=== PATIENT | male | born 1960 | race Caucasian/White ===

== ENCOUNTER 2020-07-19 07:32 | Outpatient (CLI) | payer OTHER, SELFPAY ==
[2020-07-19 07:41] LABS: Basophils Absolute Auto 0.03 K/mm3 (0.00-0.10); Basophils Percent Auto 0.6 % (0.0-1.0); Eosinophils Absolute Auto 0.18 K/mm3 (0.02-0.50); Eosinophils Percent Auto 3.5 % (1.0-6.0); Hematocrit 43.8 % (40.0-54.0); Hemoglobin 14.2 g/dL (14.0-18.0); Immature Granulocyte Absolute 0.01 K/mm3 (0.00-0.00); Immature Granulocyte Percent A 0.2 % (0.0-0.0); Lymphocytes Absolute Auto 1.59 K/mm3 (1.10-4.50); Lymphocytes Percent Auto 30.9 % (18.0-42.0); Mean Corpuscular HGB Conc 32.4 g/dL (32.0-36.0); Mean Corpuscular Hemoglobin 29.7 pg (27.0-31.0); Mean Corpuscular Volume 91.6 fL (78.0-102.0); Mean Platelet Volume 9.2 fl (8.7-11.0); Monocytes Absolute Auto 0.42 K/mm3 (0.10-0.90); Monocytes Percent Auto 8.2 % (2.0-11.0); Neutrophils Absolute Auto 2.9 K/mm3 (1.7-7.2); Neutrophils Percent Auto 56.6 % (50.0-70.0); Platelet Count Result 212 K/mm3 (150-420); Red Blood Count 4.78 M/mm3 (4.70-6.10); Red Cell Distribution Width 12.6 % (11.6-14.4); White Blood Count 5.2 K/mm3 (4.8-10.8)
[2020-07-19 08:56] LABS: Alanine Aminotransferase 37 U/L (16-63); Albumin Level 3.9 g/dL (3.4-5.0); Alkaline Phosphatase 78 U/L (46-116); Anion Gap 9 mmol/L (8-16); Aspartate Amino Transferase 25 U/L (15-37); Bilirubin,Total 0.4 mg/dL (0.00-1.00); Blood Urea Nitrogen 18 mg/dL (7-18); Calcium 8.8 mg/dL (8.5-10.1); Carbon Dioxide 26 mmol/L (21-32); Chloride 104 mmol/L (98-108); Cholesterol 194 mg/dL (0-200); Estimated Glomerular Filt Rate > 60; Folic Acid 10.1 ng/mL (8.6->20); Glucose 107 mg/dL (70-99); HDL Direct 51 mg/dL (40-60); Iron 73 ug/dL (65-175); LDL Cholesterol Calculated 124 mg/dL (<130); Osmolality Calculated 289 mOsm/kg (285-295); Percent Iron Saturation 26 % (12-57); Potassium 4.3 mmol/L (3.5-5.1); Sodium 139 mmol/L (136-145); Thyroid Stimulating Hormone 1.53 uIU/mL (0.36-3.74); Total Protein 6.9 g/dL (6.4-8.2); Triglycerides 97 mg/dL (0-150); Vitamin B12 96 pg/mL (193-986)
[2020-07-19 08:57] LABS: Prostate Specific Antigen < 0.1 ng/mL (< OR = 4.0)
== END 2020-07-19 07:33 | disposition home or self-care (01) ==
LOC: CHSLAB 07:34
PROVIDERS: PCP Family Medicine; Visit Provider Physician Assistant
DX: Z00.00 Encounter for general adult medical examination without abnormal findings (principal); Z87.448 Personal history of other diseases of urinary system; I10 Essential (primary) hypertension; Z12.5 Encounter for screening for malignant neoplasm of prostate; E78.00 Pure hypercholesterolemia, unspecified
CPT/HCPCS: 36415; 80053; 80061; 82607; 82746; 83540; 83550; 84153; 84443; 85025; G0103

== ENCOUNTER 2021-05-10 13:07 | Emergency (ER) | payer OTHER, SELFPAY ==
--- NOTE | ~2021-05-10 | US_ITS ---
EXAMINATION: US venous doppler LE RT DATE: 05/10/2021 14:44 INDICATION: Right lower limb pain TECHNIQUE: Fontenot scale images without and with compression and Doppler images of the right lower extre mity veins were obtained. COMPARISON: None FINDINGS: The right common femoral vein, profunda femoral vein, femoral vein, popliteal vein, peronea l trunk, posterior tibial veins, and greater saphenous vein are patent. There is an approximately 2.3 x 0.9 cm hypoechoic area in the medial soft tissues of the lower leg. There is posterior acoustic en hancement and no internal vascularity. IMPRESSION: 1. Patent right lower extremity veins. No evidence of deep venous thrombosis. 2. Possible small hematoma in the medial soft tissues of the lower leg. Recommend clinical follow-up with follow-up imaging if finding persists. Reviewed, dictated and finalized at location B. IMPRESSION: 1. Patent right lower extremity veins. No evidence of deep venous thrombosis. 2. Possible small hematoma in the medial soft tissues of the lower leg. Recomme nd clinical follow-up with follow-up imaging if finding persists.
--- NOTE | ~2021-05-10 | XR_ITS ---
XR knee RT 3V DATE: 05/10/2021 14:48 INDICATION: Posterior knee pain TECHNIQUE: 3 views COMPARISON: None FINDINGS: No fracture or dislocation or joint effusion. No periosteal reaction or bone destruction. J oint spaces are well preserved. Mild particular spurring of the patella. No radiopaque intra-articular loose body or chondrocalcinosis. Superior pole patellar enthesopathy. There is some ossification within the patellar tendon. IMPRESSION: Mild patellofemoral osteoarthritis Reviewed, dictated and finalized at location A.
[2021-05-10 13:15] VITALS: BP 154/107; PULSE 72; RESP 16; TEMP 36.8; O2SAT 97
[2021-05-10 13:40] VITALS: BP 133/79
[2021-05-10] MEDS: KETOROLAC (*BKC) 60 MG/2 ML VIAL IM (14:40)
--- NOTE | 2021-05-10 15:22 | ED.EXTPRO ---
HPI - Extremity Problem General Chief complaint: Extremity Problem,Nontraumatic Stated complaint: pain/swelling in rt knee Time Seen by Provider: 05/10/21 13:10 Source: patient and RN notes reviewed Mode of arrival: ambulatory Limitations: no limitations History of Present Illness Complaint: extremity pain and extremity swelling (right calf minimally swollen + nader-medial right knee pain and decreased ROM.) Onset (ago): day(s) (2 days.) Pain Consistency: constant Location: right and knee Severity scale (1-10): 4 Quality: aching Radiation: none Relieving factors: immobilization Exacerbating factors: weight bearing and walking Associated symptoms: denies other symptoms Related Data Allergies Allergy/AdvReac Type Severity Reaction Status Date / Time NSAIDS (Non-Steroidal AdvReac Other Verified 05/10/21 13:33 Anti-Inflamma Review of Systems Review of Systems: All systems reviewed & are unremarkable except as noted in HPI and below Constitutional: Constitutional: Reports as per HPI and Reports no additional constitutional complaints Eyes: Eyes: Reports as per HPI and Reports no additional eye complaints ENT: Reports system reviewed and no additional complaints, except as documented and Reports as per HPI Cardiovascular: Cardiovascular: Reports as per HPI and Reports no additional cardiovascular complaints Respiratory: Respiratory: Reports as per HPI and Reports no additional respiratory complaints Gastrointestinal: Gastrointestinal: Reports as per HPI and Reports no additional gastrointestinal complaints Genitourinary: Genitourinary: Reports no additional male genitourinary complaints and Reports as per HPI Musculoskeletal: Musculoskeletal: Reports no additional musculoskeletal complaints, Reports as per HPI and Reports arthralgias Integumentary/Breasts: Skin/Breast: Reports system reviewed and no additional complaints, except as docu and Reports as per HPI Neurologic: Reports system reviewed and no additional complaints, except as documented and Reports as per HPI Psychiatric: Psychiatric: Reports no additional psychiatric complaints and Reports as per HPI Endocrine: Endocrine: Reports no additional endocrine complaints and Reports as per HPI Hematologic/Lymphatic: Hematologic/Lymphatic: Reports no additional hematologic/lymphatic complaints and Reports as per HPI Allergic/Immunologic: Allergic/Immunologic: Reports no additional allergic/immunologic complaints and Reports as per HPI PMFSH Past Medical History Medical History Anemia of unknown etiology Arthritis of knee, right Hypercholesterolemia MVP (mitral valve prolapse) Severe low back pain Surgical History Surgical History History of appendectomy History of surgery on arm [place] teeth extracted Family History Family History Other Diabetes mellitus Family history of malignant neoplasm of bone Social History Social History Smoking status: Former smoker (Quit 2007) Second hand tobacco smoke exposure: No Smoking end date: 09/28/07 Alcohol intake: current Alcohol use details: consumes 2-3 mixed drinks weekly Substance use: never Substance use type: does not use Gender identity (if verbalized by the patient): Male Exam Const: General: healthy appearing, no acute distress and alert Nutritional Appearance: well nourished Orientation/consciousness: patient oriented x3 Limitations: no limitations HENMT: Head: normal to inspection Ears: external ears normal and TM's normal bilaterally General nose exam: Normal external nose present and Normal nares present Mouth: Yes lip normal and Yes moist mucous membranes Teeth and gingiva: dentition normal Throat: posterior oropharynx normal Eyes: Conjunctiva
[2021-05-10 15:37] VITALS: RESP 17
== END 2021-05-10 15:35 | disposition home or self-care (01) ==
PROVIDERS: Emergency Provider Emergency Medicine; PCP Family Medicine
DX: M13.861 Other specified arthritis, right knee (principal)
CPT/HCPCS: 73562; 93971; 96372; 99283; 99284; J1885

== ENCOUNTER → 2021-09-02 16:52 | Outpatient (CLI) | payer OTHER, SELFPAY ==
--- NOTE | ~2021-09-02 | XR_ITS ---
EXAMINATION: XR cervical spine 4-5V EXAM DATE: 09/02/2021 18:43 INDICATION: M54.9 - Dorsalgia, unspecified. Neck and back pain. TECHNIQUE: Cervical spine frontal, lateral, lateral swimmers, and open-mouth odontoid projections. There is no prior study for comparison. FINDINGS: There is moderate disc disease at C5-6, mild at C6-7. There is mild to moderate cervical a rthropathy. The odontoid process is intact. The lateral masses of C1 line up with C2. Prevertebral s oft tissue and pre-dens space are within normal limits. The vertebral bodies are aligned in the AP di mension. IMPRESSION: 1. Mild to moderate cervical spondylosis. Reviewed, dictated and finalized at location A. RIBUTION FIELD TECHNICIAN
--- NOTE | ~2021-09-02 | XR_ITS ---
EXAMINATION: XR thoracic spine 2V EXAM DATE: 09/02/2021 18:43 INDICATION: M54.9 - Dorsalgia, unspecified. TECHNIQUE: Frontal and lateral projections of the thoracic spine as well as lateral swimmers projecti on of the upper thoracic spine for interpretation. There is no prior study for comparison. FINDINGS: The vertebral bodies are aligned in the AP dimension. Vertebral body and disc heights are well-maintained. There are no bony erosions identified. There are no acute fractures identified. Para spinal soft tissue is unremarkable. IMPRESSION: Unremarkable thoracic x-ray. Reviewed, dictated and finalized at location A. ONS TRADER
== END ==
PROVIDERS: PCP Family Medicine; Visit Provider Family Medicine
DX: M54.9 Dorsalgia, unspecified (principal); M47.812 Spondylosis without myelopathy or radiculopathy, cervical region
CPT/HCPCS: 72050; 72070

== ENCOUNTER 2021-10-02 13:38 | Outpatient (CLI) | payer OTHER, SELFPAY ==
--- NOTE | ~2021-10-02 | XR_ITS ---
XR shoulder LT min 2V DATE: 10/02/2021 14:08 INDICATION: Anterior and posterior left shoulder pain. No injury. TECHNIQUE: 4 views COMPARISON: 07/17/2017 left shoulder FINDINGS: No fracture or dislocation, periosteal reaction or bone destruction. There is mild degenera tive change of the left acromion clavicular joint. No abnormal soft tissue calcification of the left shoulder. IMPRESSION: Mild degenerative change at left acromioclavicular joint Reviewed, dictated and finalized at location A. LIBRARIAN
== END 2021-10-02 13:39 | disposition home or self-care (01) ==
LOC: ANHIMG 13:43
PROVIDERS: PCP Family Medicine; Visit Provider Physician Assistant
DX: M19.012 Primary osteoarthritis, left shoulder (principal)
CPT/HCPCS: 73030

== ENCOUNTER 2022-01-30 09:05 | Outpatient (CLI) | payer OTHER, SELFPAY ==
[2022-01-30 09:42] LABS: Hematocrit 42.7 % (40.0-54.0); Mean Corpuscular HGB Conc 30.4 g/dL (32.0-36.0); Mean Corpuscular Hemoglobin 28.3 pg (27.0-31.0); Mean Corpuscular Volume 92.8 fL (78.0-102.0); Mean Platelet Volume 8.9 fl (8.7-11.0); Platelet Count Result 366 K/mm3 (150-420); Red Cell Distribution Width 13.1 % (11.6-14.4); White Blood Count 6.6 K/mm3 (4.8-10.8)
[2022-01-30 09:44] LABS: Add Urine Microscopic? NO; Appearance Urine Clear (Clear); Bilirubin Urine Negative (Negative); Blood Urine Negative (Negative); Color Urine Light Yellow (Yellow); Glucose Urine UA Negative (Negative); Ketones Urine Negative (Negative); Leukocyte Esterase Ur Negative LEU/UL (Negative); Nitrate Urine Negative (Negative); Protein Urine Negative (Negative); Specific Grav Ur <= 1.005 (1.010-1.020); Urobilinogen Urine 0.2 mg/dL (0.2-1.0)
[2022-01-30 10:19] LABS: Alanine Aminotransferase 26 U/L (16-63); Albumin Level 3.5 g/dL (3.4-5.0); Alkaline Phosphatase 107 U/L (46-116); Anion Gap 6 mmol/L (8-16); Aspartate Amino Transferase 17 U/L (15-37); Bilirubin,Total 0.3 mg/dL (0.00-1.00); Blood Urea Nitrogen 15 mg/dL (7-18); Calcium 9.3 mg/dL (8.5-10.1); Carbon Dioxide 30 mmol/L (21-32); Chloride 101 mmol/L (98-108); Cholesterol 174 mg/dL (0-200); Estimated Glomerular Filt Rate > 60; Glucose 88 mg/dL (70-99); HDL Direct 56 mg/dL (40-60); LDL Cholesterol Calculated 103 mg/dL (<130); Osmolality Calculated 283 mOsm/kg (285-295); Potassium 4.1 mmol/L (3.5-5.1); Sodium 137 mmol/L (136-145); Total Protein 8.2 g/dL (6.4-8.2); Triglycerides 76 mg/dL (0-150)
[2022-01-30 10:22] LABS: Thyroid Stimulating Hormone Reflex 1.88 u/IU/mL (0.36-3.74)
[2022-01-30 10:34] LABS: Rheumatoid Factor Screen Negative (Negative)
[2022-01-30 10:44] LABS: Erythrocyte Sedimentation Rate 41 mm/hr (0-20)
[2022-02-04 13:04] LABS: Anti Cyclic Citrullinated Pept <16 Units (<20)
== END 2022-01-30 09:06 | disposition home or self-care (01) ==
LOC: CHSLAB 09:07
PROVIDERS: PCP Family Medicine; Visit Provider Family Medicine
DX: I10 Essential (primary) hypertension (principal); R53.83 Other fatigue; M25.50 Pain in unspecified joint; E78.2 Mixed hyperlipidemia; Z87.448 Personal history of other diseases of urinary system
CPT/HCPCS: 36415; 80053; 80061; 81003; 84443; 84550; 85027; 85652; 86038; 86200; 86430

== ENCOUNTER 2022-02-03 07:20 | Outpatient (CLI) | payer OTHER, SELFPAY ==
--- NOTE | ~2022-02-03 | US_ITS ---
US renal BI DATE: 02/03/2022 07:47 INDICATION: Abnormal left kidney finding reported on November 24, 2018 CT abdomen pelvis noncontrast examination TECHNIQUE: Real-time imaging of the kidneys and urinary bladder COMPARISON: 11/24/2018 CT abdomen pelvis noncontrast examination November 25, 2018 MRI renal examination FINDINGS: The right kidney measures 11.3 cm length, left kidney 11.8 cm length. No renal mass lesion or hydronephrosis is detected. There is chronic lobulation of the superior aspect of the left kidney, stable since 2019. The urinary bladder is evacuated. IMPRESSION: No significant abnormality or significant change Reviewed, dictated and finalized at Location A. Reviewed, dictated and finalized at location B.
== END 2022-02-03 07:21 | disposition home or self-care (01) ==
LOC: CHSIMG 07:21
PROVIDERS: PCP Family Medicine; Visit Provider Family Medicine
DX: R93.429 Abnormal radiologic findings on diagnostic imaging of unspecified kidney (principal)
CPT/HCPCS: 76775

== ENCOUNTER 2022-09-30 08:40 | Emergency (ER) | payer OTHER, SELFPAY ==
--- NOTE | 2022-09-30 08:43 | ED.SKABFB ---
HPI - Skin/Abscess/Foreign Bdy General Chief complaint: Skin/Abscess/Foreign Body Stated complaint: body rash rt leg Time Seen by Provider: 09/30/22 08:47 Source: patient, RN notes reviewed and old records reviewed Mode of arrival: ambulatory Limitations: no limitations History of Present Illness HPI narrative: 62-year-old male presents to the [facility] with complaints of a red area to the medial aspect right lower leg. Patient states that there is a small area that started early last week and just gradually got worse over the last week or so. Had something similar a couple years ago and was prescribed a cream. States the feels hot and itchy. Center 3 x 3 cm mildly raised. Denies any injury. No open wound, no drainage denies fevers. Related Data Allergies Allergy/AdvReac Type Severity Reaction Status Date / Time NSAIDS (Non-Steroidal AdvReac Other Verified 09/30/22 08:48 Anti-Inflamma Review of Systems Review of Systems: All systems reviewed & are unremarkable except as noted in HPI and below Constitutional: Constitutional: Reports no additional constitutional complaints Eyes: Eyes: Reports no additional eye complaints ENT: Reports system reviewed and no additional complaints, except as documented Cardiovascular: Cardiovascular: Reports no additional cardiovascular complaints, Denies chest pain and Denies dyspnea Respiratory: Respiratory: Reports no additional respiratory complaints, Denies chest congestion, Denies cough and Denies dyspnea Gastrointestinal: Gastrointestinal: Reports no additional gastrointestinal complaints, Denies abdominal pain, Denies nausea and Denies vomiting Musculoskeletal: Musculoskeletal: Reports no additional musculoskeletal complaints Integumentary/Breasts: Skin/Breast: Reports as per HPI and Reports erythema Neurologic: Reports system reviewed and no additional complaints, except as documented Psychiatric: Psychiatric: Reports no additional psychiatric complaints Allergic/Immunologic: Allergic/Immunologic: Reports no additional allergic/immunologic complaints FOR[facility]LY [facility] Past Medical History Medical History Anemia of unknown etiology Arthralgia Arthritis of knee, right Encounter for immunization Encounter for immunization Hypercholesterolemia MVP (mitral valve prolapse) Severe low back pain Vitamin B12 deficiency Surgical History Surgical History History of appendectomy History of surgery on arm [place] teeth extracted Family History Family History Other Diabetes mellitus Family history of malignant neoplasm of bone Social History Social History Smoking status: Never smoker Second hand tobacco smoke exposure: No Smoking end date: 09/28/07 Alcohol intake: current Alcohol use details: consumes 2-3 mixed drinks weekly Substance use: never Substance use type: does not use Gender identity (if verbalized by the patient): Male Sexual Orientation (if Verbalized by the Patient): Straight or Heterosexual Spiritual care concerns: No Agree to blood products: Yes Comments At the time of my signature, I reviewed and agree with the nursing past medical, surgical, social, and family history. There is no relevant family history pertinent to the patient complaint. Exam Const: General: cooperative, healthy appearing, comfortable, no acute distress, well developed, alert and well nourished Nutritional Appearance: well nourished Orientation/consciousness: patient oriented x3 Limitations: no limitations HENMT: Head: normal to inspection Ears: hearing grossly normal bilaterally and external ears normal Face/Nose/Sinus: Normal external nose present, Normal nares present, Normal nasal mucous membranes and turbinates present and normal facial exam F
[2022-09-30 08:47] VITALS: BP 153/87; PULSE 86; RESP 16; TEMP 36.9; O2SAT 98
== END 2022-09-30 09:00 | disposition home or self-care (01) ==
PROVIDERS: Emergency Provider Nurse Practitioner; PCP Family Medicine
DX: L03.115 Cellulitis of right lower limb (principal); Z87.891 Personal history of nicotine dependence; M17.11 Unilateral primary osteoarthritis, right knee; I34.1 Nonrheumatic mitral (valve) prolapse
CPT/HCPCS: 99213; G0463

== ENCOUNTER 2022-10-02 08:15 | Emergency (ER) | payer OTHER, SELFPAY ==
--- NOTE | 2022-10-02 08:22 | ED.SKABFB ---
HPI - Skin/Abscess/Foreign Bdy General Chief complaint: Skin/Abscess/Foreign Body Stated complaint: RASH Time Seen by Provider: 10/02/22 08:35 Source: patient and RN notes reviewed Mode of arrival: ambulatory Limitations: no limitations History of Present Illness HPI narrative: 62-year-old male presents with concern for worsening rash on his leg. He reports he was seen here 2 days ago and was diagnosed with cellulitis and was given antibiotics. He reports the area is not improving but is worsening with rash. He reports it is not painful but itchy. He reports he now has an itchy spot on his stomach. He denies fever, aches, chills, sweats. He denies any open skin or drainage. He denies swollen lips, swollen tongue, trouble breathing, vomiting, diarrhea. He reports he has been using the cream and antibiotic as prescribed. MD complaint: rash Related Data Allergies Allergy/AdvReac Type Severity Reaction Status Date / Time NSAIDS (Non-Steroidal AdvReac Other Verified 10/02/22 08:22 Anti-Inflamma Review of Systems Review of Systems: CONSTITUTIONAL: Denies malaise, chills, sweats, or fever. EYES: Denies redness, or discharge. ENT: Denies rhinorrhea, congestion, swollen lips, swollen tongue CARDIOVASCULAR: Denies chest pain, palpitations, or edema. RESPIRATORY: Denies cough or dyspnea. GASTROINTESTINAL: Denies abdominal pain, nausea, vomiting SKIN: Reports itchy rash on his right lower leg and an itchy spot on his stomach MUSCULOSKELETAL: Denies joint pain or myalgia. NEUROLOGIC: Denies headache. All systems reviewed & are unremarkable except as noted in HPI and below PMFSH Past Medical History Medical History Anemia of unknown etiology Arthralgia Arthritis of knee, right Encounter for immunization Encounter for immunization Hypercholesterolemia MVP (mitral valve prolapse) Severe low back pain Vitamin B12 deficiency Surgical History Surgical History History of appendectomy History of surgery on arm [place] teeth extracted Family History Family History Other Diabetes mellitus Family history of malignant neoplasm of bone Social History Social History Smoking status: Never smoker Second hand tobacco smoke exposure: No Smoking end date: 09/28/07 Alcohol intake: current Alcohol use details: consumes 2-3 mixed drinks weekly Substance use: never Substance use type: does not use Gender identity (if verbalized by the patient): Male Sexual Orientation (if Verbalized by the Patient): Straight or Heterosexual Spiritual care concerns: No Agree to blood products: Yes Comments At time of signature, agree with nursing past medical, surgical, social and family history. There is no relevant family history pertinent to the presenting complaint Exam Narrative: GENERAL: Well-appearing, well-nourished, and in no acute distress. HEAD: Normocephalic, atraumatic. EYES: PERRLA, conjunctivae clear, and EOMI. ENT: Mucous membranes moist. Oropharynx without edema, erythema or lesions. NECK: Supple. No lymphadenopathy CHEST: Clear to auscultation. No respiratory distress. HEART: Regular rate and rhythm. SKIN: Warm, dry. Original area of discoloration noted to the right lower leg, 10 cm x 8 cm of dark red without induration, edema, fluctuation or drainage, area has enlarged to total area of 13 cm x 14 cm of erythematous papules. 7 cm x 5 cm hive-like rash noted to the right lower abdomen NEURO: Alert and oriented x3. PSYCH: Normal mood and affect Course Course Emergency Course: Advised patient to complete antibiotic course. Area of discoloration of the leg appears to be dermatitis related, very evident raised red papules surrounding original erythematous area Patient is aware of diagnosis
[2022-10-02 08:24] VITALS: BP 142/82; PULSE 77; RESP 16; TEMP 36.8; O2SAT 98
== END 2022-10-02 08:47 | disposition home or self-care (01) ==
PROVIDERS: Emergency Provider Nurse Practitioner; PCP Family Medicine
DX: L30.9 Dermatitis, unspecified (principal); E78.00 Pure hypercholesterolemia, unspecified; E53.8 Deficiency of other specified B group vitamins
CPT/HCPCS: 99213; G0463

== ENCOUNTER 2022-10-03 14:37 | Outpatient (CLI) | payer OTHER, SELFPAY ==
[2022-10-03 15:20] LABS: Basophils Absolute Auto 0.1 K/mm3 (0.0-0.1); Basophils Percent Auto 0.6 % (0.2-1.2); Eosinophils Absolute Auto 0.3 K/mm3 (0-0.3); Eosinophils Percent Auto 3.5 % (0-4.4); Hemoglobin 13.7 g/dL (14.0-18.0); Immature Granulocyte Absolute 0.02 K/mm3 (0.00-0.031); Immature Granulocyte Percent A 0.2 % (0-0.5); Lymphocytes Absolute Auto 2.07 K/mm3 (0.9-3.2); Lymphocytes Percent Auto 24.4 % (18.3-44.2); Mean Corpuscular HGB Conc 31.9 g/dl (32-36); Mean Corpuscular Hemoglobin 28.8 pg (26-34); Mean Corpuscular Volume 90.3 fl (80-100); Mean Platelet Volume 9.1 fl (7.4-10.4); Monocytes Absolute Auto 0.6 K/mm3 (0.1-0.6); Monocytes Percent Auto 6.7 % (2.6-8.5); Neutrophils Absolute Auto 5.5 K/mm3 (1.3-6.7); Neutrophils Percent Auto 64.6 % (45.5-73.1); Platelet Count Result 304 k/mm3 (150-375); Red Blood Count 4.76 M/mm3 (4.6-6.20); Red Cell Distribution Width 13.1 % (11.5-14.5); White Blood Count 8.5 K/mm3 (4.5-10.0)
[2022-10-03 15:25] LABS: Alanine Aminotransferase 30 U/L (6-50); Albumin Level 4.5 g/dL (3.5-5.1); Alkaline Phosphatase 105 U/L (38-126); Anion Gap 8 mmol/L (8-16); Aspartate Amino Transferase 31 U/L (17-59); Bilirubin,Total 0.2 mg/dL (0.2-1.3); Blood Urea Nitrogen 18 mg/dL (9-20); Calcium 9.2 mg/dL (8.4-10.2); Carbon Dioxide 25 mmol/L (22-30); Chloride 107 mmol/L (98-107); Estimated Glomerular Filt Rate > 60; Glucose 107 mg/dL (65-110); Potassium 3.7 mmol/L (3.4-5.0); Sodium 140 mmol/L (137-145)
[2022-10-03 16:29] LABS: Erythrocyte Sedimentation Rate 42 mm/hr (0-20)
[2022-10-07 14:43] LABS: Lyme Disease Ab (IgM), Blot Negative (Negative); Lyme Disease Ab(IgG), Blot Negative (Negative)
== END 2022-10-03 14:38 | disposition home or self-care (01) ==
LOC: ANHLAB 14:38
PROVIDERS: PCP Family Medicine; Visit Provider Family Medicine
DX: R21 Rash and other nonspecific skin eruption (principal); I10 Essential (primary) hypertension
CPT/HCPCS: 36415; 80053; 85025; 85652; 86617; 86666; 87040

== ENCOUNTER 2022-10-20 10:53 | Outpatient (CLI) | payer OTHER, SELFPAY ==
--- NOTE | 2022-10-20 11:04 | ECG_ITS ---
Measurements Intervals [place] Rate: 72 P: 41 LA: 199 QRS: 16 QRSD: 98 T: 30 QT: 376 QTc: 411 Interpretive Statements SINUS RHYTHM NORMAL ECG NO PREVIOUS ECG AVAILABLE FOR COMPARISON Electronically Signed On 10-20-2022 11:49:58 SURVEY FIELD TECHNICIAN by Martell Wilson D.O.
== END 2022-10-20 10:54 | disposition home or self-care (01) ==
PROVIDERS: PCP Family Medicine; Visit Provider Family Medicine
DX: I10 Essential (primary) hypertension (principal)
CPT/HCPCS: 93005

== ENCOUNTER 2022-11-25 07:48 | Outpatient (RCR) | payer OTHER, SELFPAY ==
--- NOTE | 2022-11-25 09:01 | PTOPEVAL1 ---
Assessment and note entered by JT File, PT Evaluation Information Assessment Status Evaluation Diagnosis s/p L shoulder arthroscopy Onset 11/11/22 Subjective Information patient reports prior to surgery, he has having a lot of pain and popping in the L shoulder. he reports reaching forward infront of him caused the shoulder to have severe pain and popping. he reports he was unable to lift anything with the L arm. 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 he reports he is planning on taking off as long as needed to recover. he reports since surgery, he has pain with lifting the arm away from the body. he reports he is able to bend and extend the elbow, but moving his whole arm away from his body is painful. Reported Pain Level Pain Score 2: Self Report Assessment PT Clinical Summary mr. cedeño is a 62 yo man who presents to skilled PT services for evaluation and treatment of L shoulder decreased rom, pain, and weakness following shoulder arthroscopy. aside from his functional activities around home, he also has a physically decmanding job that requires him to lift, carry, and reach overhead frequently. he would benefit from skilled PT interventions to improve his objective/functional deficits and progress towards a return to his prior level functional activity performance and quality of life. Plan of Care Interventions Electrical Stimulation,Hot Pack/Cold Pack,Manual Therapy,Neuro Re-education,Patient/Caregiver Educati,Therapeutic Activities,Therapeutic Exercise PT Services Indicated Yes Treatment Frequency and 3x weekly for 12 visits Duration These treatments will address the objective and functional deficits as defined above. The patient will be advanced safely and appropriately in order for the patient to progress towards his/her prior level of function. Additional exercises will be introduced and as well as a comprehensive home exercise program upon discharge, if needed, ?to ensure carryover of functional gains achieved in the clinic. This treatment plan has been reviewed and agreement upon by the patient.
--- NOTE | 2022-12-25 07:49 | PTOPPROGNS ---
Assessment and note entered by Liz Orozco DPT Evaluation Information Assessment Status Progress Diagnosis s/p L shoulder arthroscopy Onset 11/11/22 Subjective Information Patient reports his pain has decreased significantly within the last week. He reports his highest pain has been 2/10. He reports that reaching behind him continues to be his most challenging task. Assessment PT Clinical Summary Patient has been seen for 10 visits from 11/25/22-. He has made great improvements in L UE strength and ROM. He reports significant decrease in recent pain levels. He continues to have strength deficits and reports diffiulty with activities that require him to reach behind his back such as puting on a belt. He would continue to benefit from skilled PT to address remaining impairments and return to PLOF. Plan of Care Interventions Electrical Stimulation,Hot Pack/Cold Pack,Manual Therapy,Neuro Re-education,Patient/Caregiver Educati,Therapeutic Activities,Therapeutic Exercise PT Services Indicated Yes Treatment Frequency and continue with current POC Duration These treatments will address the objective and functional deficits as defined above. The patient will be advanced safely and appropriately in order for the patient to progress towards his/her prior level of function. Additional exercises will be introduced and as well as a comprehensive home exercise program upon discharge, if needed, ?to ensure carryover of functional gains achieved in the clinic. This treatment plan has been reviewed and agreement upon by the patient.
== END 2022-12-30 23:59 | disposition home or self-care (01) ==
LOC: CHSPT 07:48
PROVIDERS: Visit Provider Orthopaedic Surgery
DX: M25.512 Pain in left shoulder (principal); Z98.890 Other specified postprocedural states
CPT/HCPCS: 97014; 97110; 97112; 97140; 97161; G0283

== ENCOUNTER 2022-11-30 13:20 | Emergency (ER) | payer OTHER, SELFPAY ==
[2022-11-30 13:27] VITALS: BP 156/105; PULSE 89; RESP 16; TEMP 36.8; O2SAT 98
--- NOTE | 2022-11-30 13:44 | ED.GENADULT ---
HPI - General Adult General Chief complaint: Skin/Abscess/Foreign Body Stated complaint: L arm rash History of Present Illness HPI narrative: Cristopher presented to the ED with a rash. He has had a couple rashes since having shoulder surgery (is reportedly allergic to tape) for a couple weeks. However, his left elbow crease has started to crack and have some drainage so he became concerned. This happened to another rash and it was worsened by triamcinolone cream but helped by antibiotics. No fevers, chills, N/V, or other systemic symptoms reported. Related Data Home Medications Medication Instructions Recorded Confirmed ascorbic acid (vitamin C) 500 mg 500 mg PO BID 11/30/22 11/30/22 chewable tablet (Vitamin C) cholecalciferol (vitamin D3) 50 50 mcg PO DAILY 11/30/22 11/30/22 mcg (2,000 unit) tablet Allergies Allergy/AdvReac Type Severity Reaction Status Date / Time NSAIDS (Non-Steroidal AdvReac Other Verified 10/21/22 15:55 Anti-Inflamma tape AdvReac Rash Uncoded 11/30/22 13:46 Review of Systems Review of Systems: All systems reviewed & are unremarkable except as noted in HPI and below PMFSH Past Medical History Medical History Anemia of unknown etiology Arthralgia Arthritis of knee, right Encounter for immunization Encounter for immunization Hypercholesterolemia MVP (mitral valve prolapse) Severe low back pain Vitamin B12 deficiency Surgical History Surgical History History of appendectomy History of surgery on arm [place] teeth extracted Family History Family History Other Diabetes mellitus Family history of malignant neoplasm of bone Social History Social History Smoking status: Never smoker Second hand tobacco smoke exposure: No Smoking end date: 09/28/07 Alcohol intake: current Alcohol use details: consumes 2-3 mixed drinks weekly Substance use: never Substance use type: does not use Lack of Transportation: No Lack of Food: Never True Current Housing: I Have Housing Concerned About Future Housing: No Difficulty Paying Gas/Electric Bills: No Difficulty Paying for Meds: No Currently Unemployed: No Education: High School Diploma/GED Difficulty w/ Childcare or Family Care: No Living arrangements: with family Gender identity (if verbalized by the patient): Male Sexual Orientation (if Verbalized by the Patient): Straight or Heterosexual Spiritual care concerns: No Agree to blood products: Yes Exam Const: General: healthy appearing and no acute distress Nutritional Appearance: well nourished Orientation/consciousness: patient oriented x3 HENMT: Head: normal to inspection Ears: external ears normal Eyes: Conjunctivae: conjunctivae normal Pupils: Equal, round and reactive pupils present Neck: Neck: normal visual inspection Chest: Chest palpation & inspection: normal inspection of the chest Resp: Effort & Inspection: normal respiratory effort Cardio: Rate: regular rate GI: Inspection: non-distended Skin: Other: left anterior elbow had an erythematous maculopapular rash with excoriation and honey colored drainage Neuro: General: patient oriented x3 and moves all extremities Cranial nerves: Yes Nystagmus not present Extrem: General: normal to inspection Psych: Mental Status: mental status grossly normal Course Course Emergency Course: clindamycin Vital Signs Vital signs: Vital Signs Temperature 98.3 F 11/30/22 13:27 Pulse Rate 89 11/30/22 13:27 Respiratory Rate 16 11/30/22 13:27 Blood Pressure 156/105 H 11/30/22 13:27 Pulse Oximetry 98 11/30/22 13:27 Oxygen Delivery Room Air 11/30/22 13:27 Temperature 98.3 F 11/30/22 13:27 Pulse Rate 89 11/30/22 13:27 Respiratory Ra
[2022-11-30] MEDS: CLINDAMYCIN HCL 150 MG CAP 450 MG PO (13:54)
== END 2022-11-30 13:58 | disposition home or self-care (01) ==
PROVIDERS: Emergency Provider Family Medicine; PCP Family Medicine
DX: L01.00 Impetigo, unspecified (principal)
CPT/HCPCS: 99283; A9270

== ENCOUNTER 2023-10-01 08:53 | Outpatient (CLI) | payer BC, SELFPAY ==
[2023-10-01 10:38] LABS: Alanine Aminotransferase 36 U/L (16-63); Alkaline Phosphatase 94 U/L (46-116); Anion Gap 5 mmol/L (8-16); Aspartate Amino Transferase 26 U/L (15-37); Bilirubin,Total 0.4 mg/dL (0.00-1.00); Blood Urea Nitrogen 16 mg/dL (7-18); Calcium 9.3 mg/dL (8.5-10.1); Carbon Dioxide 33 mmol/L (21-32); Chloride 101 mmol/L (98-108); Cholesterol 204 mg/dL (0-200); Estimated Glomerular Filt Rate > 60; Glucose 99 mg/dL (70-99); HDL Direct 57 mg/dL (40-60); LDL Cholesterol Calculated 133 mg/dL (<130); Osmolality Calculated 289 mOsm/kg (285-295); Potassium 4.7 mmol/L (3.5-5.1); Prostate Specific Antigen 0.8 ng/mL (< OR = 4.0); Sodium 139 mmol/L (136-145); Total Protein 7.3 g/dL (6.4-8.2); Triglycerides 72 mg/dL (0-150)
== END 2023-10-01 08:54 | disposition home or self-care (01) ==
LOC: CHSLAB 08:57
PROVIDERS: PCP Family Medicine; Visit Provider Physician Assistant
DX: Z13.1 Encounter for screening for diabetes mellitus (principal); Z12.5 Encounter for screening for malignant neoplasm of prostate; Z13.220 Encounter for screening for lipoid disorders
CPT/HCPCS: 36415; 80053; 80061; 84153; G0103

== ENCOUNTER 2023-11-18 00:18 | Day surgery (SDC) | payer BC, SELFPAY ==
[2023-10-21 11:02] VITALS: BMI 31.1
--- NOTE | 2023-11-16 09:00 | SUR.PREOP ---
Patient called regarding upcoming procedure. Voicemail left regarding appointment times.
--- NOTE | 2023-11-17 17:56 | PM.HPGS ---
History of Present Illness History of Present Illness Consent: Risks, benefits, and alternatives have been discussed and questions answered. Patient agrees to proceed with procedure. Chief complaint: Other fecal abnormalities Narrative: Cristopher Bradley is a 63 year old male Referred for colonoscopy due to positive Cologuard test. Review of Systems Review of Systems: All systems reviewed & are unremarkable except as noted in HPI and below PMFSH Past Medical History Medical History Anemia of unknown etiology Arthralgia Arthritis of knee, right Encounter for immunization Encounter for immunization Hypercholesterolemia MVP (mitral valve prolapse) Severe low back pain Vitamin B12 deficiency Surgical History Surgical History History of appendectomy History of surgery on arm [place] teeth extracted Family History Family History Other Diabetes mellitus Family history of malignant neoplasm of bone Social History Social History Years smoked: 20 Smoking status: Former smoker Tobacco type: cigarettes Second hand tobacco smoke exposure: No Smoking end date: 09/28/07 Alcohol intake: current Drinks per week: 4 Alcohol use details: consumes 1 mixed drinks weekly Substance use: never Substance use type: does not use Lack of Transportation: No Lack of Food: Never True Current Housing: I Have Housing Concerned About Future Housing: No Difficulty Paying Gas/Electric Bills: No Difficulty Paying for Meds: No Currently Unemployed: No Education: High School Diploma/GED Difficulty w/ Childcare or Family Care: No Living arrangements: other Additional living arrangements comments: with sp Occupation/Education: occupation 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 [employer] Gender identity (if verbalized by the patient): Male Sexual Orientation (if Verbalized by the Patient): Straight or Heterosexual Spiritual care concerns: No Agree to blood products: Yes Meds Home Medications and Allergies Home Medications Medication Instructions Recorded Confirmed Type hydroxychloroquine 200 mg tablet 200 mg PO BID 09/07/23 11/18/23 History pravastatin 20 mg tablet 20 mg PO DAILY #90 tabs 09/30/23 11/18/23 Rx amlodipine 5 mg tablet 5 mg PO DAILY #90 tabs 10/20/23 11/18/23 Rx tramadol 50 mg tablet 50 mg PO Q6H PRN pain #100 tabs 11/05/23 11/18/23 Rx Allergies Allergy/AdvReac Type Severity Reaction Status Date / Time NSAIDS (Non-Steroidal AdvReac Other Verified 11/18/23 06:55 Anti-Inflamma tape AdvReac Rash Uncoded 11/18/23 06:55 Exam Resp: Auscultation: clear to auscultation bilaterally Cardio: Rate: regular rate Rhythm: regular rhythm GI: GI Palp: Yes Soft to palpation and No Tenderness to palpation present (GI) Assessment and Plan Assessment and plan (1) Colon cancer screening: Code(s): Z12.11 - Encounter for screening for malignant neoplasm of colon Status: Acute Assessment and Plan: Colonoscopy with possible biopsy or polypectomy or cautery or injection of substances.
[2023-11-18 06:48] VITALS: BP 137/73; PULSE 90; RESP 16; TEMP 36.9; O2SAT 99; BMI 30.3
[2023-11-18] MEDS: LACTATED RINGERS 1,000 ML 150 ML IV CONT (07:15)
--- NOTE | 2023-11-18 07:33 | WPDANESEPPF ---
Anes - Initial Pre Proc Eval Procedure: Operation Date: 11/18/23 08:00 Proposed Procedures p Colonoscopy - Christian Sharpe MD Date/Time: 11/18/23 07:33 Surgeon: Christian Sharpe MD Pre Op Diagnosis: Other fecal abnormalities Patient Data Age: 63 Gender: M Height: 1.73 m Weight: 90.6 kg Last Vital Signs Temp 98.4 F 11/18/23 06:48 Pulse 90 11/18/23 06:48 Resp 16 11/18/23 06:48 BP 137/73 11/18/23 06:48 Pulse Ox 99 11/18/23 06:48 O2 Del Method Room Air 11/18/23 06:48 Allergies Allergy/AdvReac Type Severity Reaction Status Date / Time NSAIDS (Non-Steroidal AdvReac Other Verified 11/18/23 06:55 Anti-Inflamma tape AdvReac Rash Uncoded 11/18/23 06:55 Home Medications Medication Instructions Recorded Confirmed Type hydroxychloroquine 200 mg tablet 200 mg PO BID 09/07/23 11/18/23 History pravastatin 20 mg tablet 20 mg PO DAILY #90 tabs 09/30/23 11/18/23 Rx amlodipine 5 mg tablet 5 mg PO DAILY #90 tabs 10/20/23 11/18/23 Rx tramadol 50 mg tablet 50 mg PO Q6H PRN pain #100 tabs 11/05/23 11/18/23 Rx Patient hx anesthesia problems: none Family hx anesthesia problems: none Results Review: All pre-operative results and documents have been reviewed as part of the pre-operative evaluation. [facility] Past Medical History Medical History Anemia of unknown etiology Arthralgia Arthritis of knee, right Encounter for immunization Encounter for immunization Hypercholesterolemia MVP (mitral valve prolapse) Severe low back pain Vitamin B12 deficiency Surgical History Surgical History History of appendectomy History of surgery on arm [place] teeth extracted Family History Family History Other Diabetes mellitus Family history of malignant neoplasm of bone Social History Social History Years smoked: 20 Smoking status: Former smoker Tobacco type: cigarettes Second hand tobacco smoke exposure: No Smoking end date: 09/28/07 Alcohol intake: current Drinks per week: 4 Alcohol use details: consumes 1 mixed drinks weekly Substance use: never Substance use type: does not use Lack of Transportation: No Lack of Food: Never True Current Housing: I Have Housing Concerned About Future Housing: No Difficulty Paying Gas/Electric Bills: No Difficulty Paying for Meds: No Currently Unemployed: No Education: High School Diploma/GED Difficulty w/ Childcare or Family Care: No Living arrangements: other Additional living arrangements comments: with sp Occupation/Education: occupation 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 [employer] Gender identity (if verbalized by the patient): Male Sexual Orientation (if Verbalized by the Patient): Straight or Heterosexual Spiritual care concerns: No Agree to blood products: Yes Anes - Eval Final PreProcedure Day of Procedure 11/18/23 07:33 Patient weight: obese Heart: regular rate and rhythm Lungs: clear to auscultation Airway: Mallampati scale class II Neurological: alert and oriented Last oral intake: >/= 8 hours ASA classification: III Emergent: no Anesthetic plan: proceed Anesthesia type and monitoring: general GIVS and standard monitoring Results Review: All pre-operative results and documents have been reviewed as part of the pre-operative evaluation. Informed Consent: The patient's anesthetic plan and its attendant risks and benefits were discussed with the patient/family/POA. Questions were solicited and answers provided to the satisfaction of the patient/family/POA.
[2023-11-18 08:20] VITALS: BP 97/48; PULSE 76; RESP 12; O2SAT 97
[2023-11-18 08:30] VITALS: BP 98/51; PULSE 74; RESP 14; O2SAT 100
[2023-11-18 08:40] VITALS: BP 103/47; PULSE 76; RESP 22; O2SAT 99
== END 2023-11-18 08:50 | disposition home or self-care (01) ==
PROVIDERS: PCP Family Medicine; Visit Provider Internal Medicine Gastroenterology
PROC: 0DJD8ZZ Inspection of Lower Intestinal Tract, Via Natural or Artificial Opening Endoscopic (ICD-10-PCS; CPT 45378; principal; 2023-11-18 08:00)
DX: Z12.11 Encounter for screening for malignant neoplasm of colon (principal); D12.4 Benign neoplasm of descending colon; K57.30 Diverticulosis of large intestine without perforation or abscess without bleeding; R19.5 Other fecal abnormalities; E53.8 Deficiency of other specified B group vitamins; E78.00 Pure hypercholesterolemia, unspecified; Z87.891 Personal history of nicotine dependence
CPT/HCPCS: 45385; 88305; J2704; J7120

== ENCOUNTER 2024-01-20 11:52 | Outpatient (CLI) | payer BC, SELFPAY ==
[2024-01-20 12:09] LABS: Hematocrit 41.6 % (42.0-52.0); Hemoglobin 12.5 g/dL (14.0-18.0); Mean Corpuscular Hemoglobin 27.5 pg (26-34); Mean Corpuscular Volume 91.4 fl (80-100); Mean Platelet Volume 8.7 fl (7.4-10.4); Platelet Count Result 279 k/mm3 (150-375); Red Blood Count 4.55 M/mm3 (4.6-6.20); Red Cell Distribution Width 13.2 % (11.5-14.5); White Blood Count 5.9 K/mm3 (4.5-10.0)
[2024-01-20 13:24] LABS: Free T4 Free Thyroxine 1.13 ng/mL (0.78-2.19)
[2024-01-20 14:39] LABS: Iron 47 ug/dL (49-181)
[2024-01-20 14:48] LABS: Percent Iron Saturation 19 % (20-50)
[2024-01-24 08:54] LABS: Testosterone Free 36.7 pg/mL (35.0-155.0); Testosterone Total 260 ng/dL (250-1100)
== END 2024-01-20 11:53 | disposition home or self-care (01) ==
PROVIDERS: PCP Family Medicine; Visit Provider Physician Assistant
DX: D64.9 Anemia, unspecified (principal); E29.1 Testicular hypofunction; R53.83 Other fatigue
CPT/HCPCS: 36415; 82728; 83540; 83550; 84402; 84403; 84439; 84443; 85027

== ENCOUNTER 2024-04-06 00:10 | Day surgery (SDC) | payer BC, SELFPAY ==
[2024-03-17 14:21] VITALS: BMI 31.8
[2024-04-06 11:24] VITALS: BP 173/84; PULSE 63; RESP 18; TEMP 36.1; O2SAT 99
[2024-04-06] MEDS: LACTATED RINGERS 1,000 ML 150 ML IV CONT (11:32)
--- NOTE | 2024-04-06 11:49 | WPDANESEPPF ---
Anes - Initial Pre Proc Eval Procedure: Operation Date: 04/06/24 12:30 Proposed Procedures p Esophagogastroduodenoscopy - Krunal Christiansen MD Date/Time: 04/06/24 11:49 Surgeon: Krunal Christiansen MD Pre Op Diagnosis: Iron Deficiency anemia unspecified Patient Data Age: 64 Gender: M Height: 1.73 m Weight: 91 kg Last Vital Signs Temp 97.0 F L 04/06/24 11:24 Pulse 63 04/06/24 11:24 Resp 18 04/06/24 11:24 BP 173/84 H 04/06/24 11:24 Pulse Ox 99 04/06/24 11:24 O2 Del Method Room Air 04/06/24 11:24 Allergies Allergy/AdvReac Type Severity Reaction Status Date / Time NSAIDS (Non-Steroidal AdvReac Other Verified 04/06/24 11:22 Anti-Inflamma tape AdvReac Rash Uncoded 01/20/24 11:29 Home Medications Medication Instructions Recorded Confirmed Type hydroxychloroquine 200 mg tablet 200 mg PO BID 09/07/23 03/17/24 History pravastatin 20 mg tablet 20 mg PO DAILY #90 tabs 09/30/23 03/17/24 Rx amlodipine 5 mg tablet 5 mg PO DAILY #90 tabs 10/20/23 03/17/24 Rx ferrous sulfate 325 mg (65 mg 325 mg PO DAILY #100 tabs 01/22/24 03/17/24 Rx iron) tablet tramadol 50 mg tablet 50 mg PO Q6H PRN pain #100 tabs 03/24/24 04/06/24 Rx Patient hx anesthesia problems: none Family hx anesthesia problems: none Results Review: All pre-operative results and documents have been reviewed as part of the pre-operative evaluation. [facility] Past Medical History Medical History Anemia of unknown etiology Arthralgia Arthritis of knee, right Encounter for immunization Encounter for immunization Hypercholesterolemia MVP (mitral valve prolapse) Severe low back pain Vitamin B12 deficiency Surgical History Surgical History History of appendectomy History of surgery on arm [place] teeth extracted Family History Family History Other Diabetes mellitus Family history of malignant neoplasm of bone Social History Social History Smoking packs per day: 1.5 Smoking cigarettes per day: 30.0 Years smoked: 20 Smoking pack-years: 30.00 Smoking status: Former smoker Tobacco type: cigarettes Second hand tobacco smoke exposure: No Smoking end date: 09/28/07 Alcohol intake: current Drinks per week: 3 Alcohol use details: consumes 1 mixed drinks weekly Substance use: never Substance use type: does not use Lack of Transportation: No Lack of Food: Never True Current Housing: I Have Housing Concerned About Future Housing: No Difficulty Paying Gas/Electric Bills: No Difficulty Paying for Meds: No Currently Unemployed: No Education: High School Diploma/GED Difficulty w/ Childcare or Family Care: No Living arrangements: with family Additional living arrangements comments: with sp Occupation/Education: occupation 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[employer] Gender identity (if verbalized by the patient): Male Sexual Orientation (if Verbalized by the Patient): Straight or Heterosexual Spiritual care concerns: No Agree to blood products: Yes Anes - Eval Final PreProcedure Day of Procedure 04/06/24 11:49 Patient weight: obese Heart: regular rate and rhythm Lungs: clear to auscultation Airway: Mallampati scale class II Neurological: alert and oriented Last oral intake: >/= 8 hours ASA classification: III Emergent: no Anesthetic plan: proceed Anesthesia type and monitoring: general GIVS and standard monitoring Results Review: All pre-operative results and documents have been reviewed as part of the pre-operative evaluation. Informed Consent: The patient's anesthetic plan and its attendant risks and benefits were discussed with the patient/family/POA.
--- NOTE | 2024-04-06 12:51 | PM.HPGS ---
History of Present Illness History of Present Illness Consent: Risks, benefits, and alternatives have been discussed and questions answered. Patient agrees to proceed with procedure. Chief complaint: Iron Deficiency anemia unspecified Narrative: Cristopher Bradley is a 64 year old male here for egd because anemia, hgb 12 but denies overt gib, had recent colonoscopy but no egd Review of Systems Review of Systems: All systems reviewed & are unremarkable except as noted in HPI and below PMFSH Past Medical History Medical History Anemia of unknown etiology Arthralgia Arthritis of knee, right Encounter for immunization Encounter for immunization Hypercholesterolemia MVP (mitral valve prolapse) Severe low back pain Vitamin B12 deficiency Surgical History Surgical History History of appendectomy History of surgery on arm [place] teeth extracted Family History Family History Other Diabetes mellitus Family history of malignant neoplasm of bone Social History Social History Smoking packs per day: 1.5 Smoking cigarettes per day: 30.0 Years smoked: 20 Smoking pack-years: 30.00 Smoking status: Former smoker Tobacco type: cigarettes Second hand tobacco smoke exposure: No Smoking end date: 09/28/07 Alcohol intake: current Drinks per week: 3 Alcohol use details: consumes 1 mixed drinks weekly Substance use: never Substance use type: does not use Lack of Transportation: No Lack of Food: Never True Current Housing: I Have Housing Concerned About Future Housing: No Difficulty Paying Gas/Electric Bills: No Difficulty Paying for Meds: No Currently Unemployed: No Education: High School Diploma/GED Difficulty w/ Childcare or Family Care: No Living arrangements: with family Additional living arrangements comments: with sp Occupation/Education: occupation 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 [employer] Gender identity (if verbalized by the patient): Male Sexual Orientation (if Verbalized by the Patient): Straight or Heterosexual Spiritual care concerns: No Agree to blood products: Yes Meds Home Medications and Allergies Home Medications Medication Instructions Recorded Confirmed Type hydroxychloroquine 200 mg tablet 200 mg PO BID 09/07/23 03/17/24 History pravastatin 20 mg tablet 20 mg PO DAILY #90 tabs 09/30/23 03/17/24 Rx amlodipine 5 mg tablet 5 mg PO DAILY #90 tabs 10/20/23 03/17/24 Rx ferrous sulfate 325 mg (65 mg 325 mg PO DAILY #100 tabs 01/22/24 03/17/24 Rx iron) tablet tramadol 50 mg tablet 50 mg PO Q6H PRN pain #100 tabs 03/24/24 04/06/24 Rx Allergies Allergy/AdvReac Type Severity Reaction Status Date / Time NSAIDS (Non-Steroidal AdvReac Other Verified 04/06/24 11:22 Anti-Inflamma tape AdvReac Rash Uncoded 01/20/24 11:29 Vital Signs Vital Signs - 24 hr 04/06/24 11:24 Temperature 97.0 F L Pulse Rate 63 Respiratory Rate 18 Blood Pressure 173/84 H Pulse Oximetry 99 Oxygen Delivery Room Air Exam Const: General: comfortable and no acute distress HENMT: Face/Nose/Sinus: Normal nares present Eyes: General: appearance normal, both eyes and all related structures Neck: Neck: no JVD Resp: Auscultation: clear to auscultation bilaterally Cardio: Rate: regular rate Rhythm: regular rhythm GI: Inspection: non-distended GI Palp: Yes Soft to palpation Skin: General skin exam: normal color Neuro: General: gait normal Speech: normal speech Extrem: General: normal to inspection Psych: Mental Status: mental status grossly normal Assessment and Plan Assessment and plan (1) Iron deficiency anemia: Code(s): D50.9 - Iron deficiency an
[2024-04-06] MEDS: BENZOCAINE (*SP) 60 ML SPRAY CAN (HURRICAINE) 1 SPRAY MUCOUS MEM (12:59)
[2024-04-06 13:10] VITALS: BP 125/67; PULSE 66; RESP 15; O2SAT 97
[2024-04-06 13:20] VITALS: BP 116/61; PULSE 64; RESP 13; O2SAT 96
[2024-04-06 13:30] VITALS: BP 134/76; PULSE 60; RESP 14; O2SAT 99
== END 2024-04-06 13:36 | disposition home or self-care (01) ==
PROVIDERS: PCP Family Medicine; Visit Provider Internal Medicine Gastroenterology
PROC: 0DJ08ZZ Inspection of Upper Intestinal Tract, Via Natural or Artificial Opening Endoscopic (ICD-10-PCS; CPT 43235; principal; 2024-04-06 12:30)
DX: K29.50 Unspecified chronic gastritis without bleeding (principal); B96.81 Helicobacter pylori [H. pylori] as the cause of diseases classified elsewhere; D50.9 Iron deficiency anemia, unspecified; E78.00 Pure hypercholesterolemia, unspecified; I34.1 Nonrheumatic mitral (valve) prolapse; Z87.891 Personal history of nicotine dependence; E66.9 Obesity, unspecified; Z68.30 Body mass index [BMI] 30.0-30.9, adult
CPT/HCPCS: 43239; 88305; 88342; J2704; J7120

== ENCOUNTER 2024-10-05 08:22 | Outpatient (CLI) | payer BC, SELFPAY ==
[2024-10-05 08:57] LABS: Basophils Percent Auto 0.8 % (0.2-1.2); Eosinophils Absolute Auto 0.2 K/mm3 (0-0.3); Hematocrit 44.5 % (42.0-52.0); Hemoglobin 14.3 g/dL (14.0-18.0); Immature Granulocyte Absolute 0.02 K/mm3 (0.00-0.031); Immature Granulocyte Percent A 0.4 % (0-0.5); Lymphocytes Absolute Auto 1.57 K/mm3 (0.9-3.2); Lymphocytes Percent Auto 29.7 % (18.3-44.2); Mean Corpuscular HGB Conc 32.1 g/dl (32-36); Mean Corpuscular Hemoglobin 29.9 pg (26-34); Mean Corpuscular Volume 93.1 fl (80-100); Mean Platelet Volume 9.5 fl (7.4-10.4); Monocytes Absolute Auto 0.4 K/mm3 (0.1-0.6); Monocytes Percent Auto 8.3 % (2.6-8.5); Neutrophils Absolute Auto 3.1 K/mm3 (1.3-6.7); Neutrophils Percent Auto 57.8 % (45.5-73.1); Platelet Count Result 231 k/mm3 (150-375); Red Blood Count 4.78 M/mm3 (4.6-6.20); Red Cell Distribution Width 12.2 % (11.5-14.5); White Blood Count 5.3 K/mm3 (4.5-10.0)
[2024-10-05 09:50] LABS: Alanine Aminotransferase 56 U/L (6-50); Albumin Level 4.3 g/dL (3.5-5.1); Alkaline Phosphatase 107 U/L (38-126); Anion Gap 5 mmol/L (4-12); Aspartate Amino Transferase 29 U/L (17-59); Bilirubin,Total 0.5 mg/dL (0.2-1.3); Blood Urea Nitrogen 20 mg/dL (9-20); Calcium 9.3 mg/dL (8.4-10.2); Carbon Dioxide 29 mmol/L (22-30); Chloride 105 mmol/L (98-107); Cholesterol 219 mg/dL (0-200); Estimated Glomerular Filt Rate > 60; Glucose 97 mg/dL (65-110); HDL Direct 47 mg/dL; Potassium 4.5 mmol/L (3.4-5.0); Sodium 139 mmol/L (137-145); Triglycerides 113 mg/dL (<150)
[2024-10-05 09:54] LABS: Iron 106 ug/dL (49-181)
[2024-10-05 10:00] LABS: LDL Cholesterol Direct 116 mg/dL
[2024-10-05 10:07] LABS: Percent Iron Saturation 39 % (20-50)
[2024-10-05 10:19] LABS: Prostate Specific Antigen 0.9 ng/mL (< OR = 4.0)
[2024-10-05 10:55] LABS: Folic Acid 6.2 ng/mL (2.76->20)
== END 2024-10-05 08:23 | disposition home or self-care (01) ==
LOC: ANHLAB 08:23
PROVIDERS: PCP Family Medicine; Visit Provider Family Medicine
DX: Z12.5 Encounter for screening for malignant neoplasm of prostate (principal); E78.2 Mixed hyperlipidemia; D50.9 Iron deficiency anemia, unspecified; E78.5 Hyperlipidemia, unspecified; I10 Essential (primary) hypertension; D64.9 Anemia, unspecified; E03.9 Hypothyroidism, unspecified
CPT/HCPCS: 36415; 80053; 80061; 82607; 82728; 82746; 83540; 83550; 84153; 84443; 85025; G0103

== ENCOUNTER 2025-02-01 08:26 | Emergency (ER) | payer BC, SELFPAY ==
--- NOTE | ~2025-02-01 | XR_ITS ---
EXAMINATION: XR chest 1V portable DATE: 02/01/2025 09:18 INDICATION: Fever and back pain TECHNIQUE: frontal view of the chest was obtained. COMPARISON: Chest radiograph dated 09/06/2018 FINDINGS: Unchanged linear discoid atelectasis/scarring at the left costophrenic angle. No other airspace opaci ties, pulmonary edema, pleural effusion or pneumothorax. The cardiomediastinal silhouette is normal. Visualized bones and soft tissues are unremarkable. IMPRESSION: 1. No acute cardiopulmonary disease. Reviewed, dictated and finalized at location A.
[2025-02-01 08:30] VITALS: BP 139/81; PULSE 78; RESP 18; TEMP 36.6; O2SAT 98
--- OUTSIDE RECORDS SUMMARY | 2025-02-01 08:30 | XMS_ITS | Clinical Summary ---
Author Organization [facility] Address [address] [place] [id number] Care Team Providers Care Bladder Blower Name Role Phone Miky Norris MD Primary Care Provider [phone] Social History Tobacco Use Types Packs/Day Years Used Date Smoking Tobacco: Never Assessed Sex and Gender Information Value Date Recorded Sex Assigned at Not on file Legal Sex Male 4:26 PM CDT Gender Identity Not on file Sexual Orientation Not on file Plan of Treatment Health Maintenance Due Date Last Done Comments Colorectal Cancer Screening Colonoscopy (10 Years) 1962 Annual Physical 1965 Hepatitis C 01/15/1980 DTaP, Tdap and Td Vaccines ( 1 - Tdap) 1981 Pneumococcal Vaccine: 50+ Ye ars (1 of 1 - PCV) 01/15/2012 Zoster Vaccines (1 of 2) 01/15/2012 COVID-19 Vaccine (2023-2 5 season) 2024 RSV Immunization or 60+ Years (1 - 1-dose 75+ series) 2037 Meningococcal B Vaccine Aged Out No l onger eligible based on patient's age to complete this topic Meningococcal Vaccine Aged Out No navya hero eligible based on patient's age to complete this topic RSV Immunizations Under 20 Months Aged Out No longer eligible based on patient's age to complete this topic Care Teams Bladder Blower Relationship Specialty Start Date End Date Miky Norris MD [address] [place] [address] PCP - General 10/13/13
--- OUTSIDE RECORDS SUMMARY | 2025-02-01 08:30 | XMS_ITS | Clinical Summary ---
Author Organization [facility] Address [address] [place] [address] Care Team Providers Care Warp Worker Name Role Phone Nhung Mixon MD Primary Care Provider [phone] Radha Velásquez PA Unavailable [phone] Bhupendra Wiley NP Unavailable [phone] Allergies Active Allergy Reactions Criticality Noted Date Comments Adhesive Redness Low 10/22/2020 Patient can tolerate paper tape Medications amLODIPine (NORVASC) 5 mg tabletIndicatio ns:hypertension Take 1 tablet (5 mg total) by mouth daily 08/27/2020 Active pravastatin (PRAVACHOL) 20 mg tabletIndicatio ns:hyperlipidem ia Take 1 tablet (20 mg total) by mouth every morning Active traMADoL (ULTRAM) 50 mg tablet Take 1 tablet (50 mg total) by mouth every 8 (eight) hours as needed 06/30/2022 Active FeroSuL 325 mg (65 mg iron) tablet Take 1 tablet (325 mg total) by mouth daily 01/22/2024 Active hydroxychloroqu ine (PLAQUENIL) 200 mg tabletIndicatio ns:Connective Tissue Disease Take 1 tablet (200 mg total) by mouth 2 (two) times a day 60 tablet 6 04/27/2024 Active Active Problems Problem Noted Date Diagnosed Date Arthralgia of both hands 04/27/2024 Assessment & Plan (11/30/2024 9:57 AM TROUBLE SHOOTING MECHANIC): Degenerative and past inflammatory changes. Past elevation in ESR/CRP but negative RF and CCP as well other other serologies were normal. Excellent response to HCQ, possibly SNRA. Continue to monitor. Follow up in 6 months and prn. Assessment & Plan (04/27/2024 8:28 AM CDT): Flare in hand pain symptoms lately. Declines prednisone. Can't take NSAIDs due to history of AVI and gastritis. Will update labs and US for check of possible inflammatory arthritis. Feels overall improved since starting HCQ. Continue same. Follow up in 6 months and prn. Long-term use of hydroxychloroquine 04/27/2024 Assessment & Plan (11/30/2024 9:58 AM TROUBLE SHOOTING MECHANIC): Hydroxychloroquine (Plaquenil) is a disease-modifying anti-rheumatic drug (DMARD). It can decrease the pain and swelling of arthritis which can prevent joint damage leading to long-term disability. Hydroxychloroquine is in a class of medications that was first used to prevent and treat malaria but today is the standard drug in lupus. It can be used in many other autoimmune diseases. It is not fully clear of its mechanism of action, but the current thought is that it interferes with communication in the immune system. How to Take It Hydroxychloroquine comes in an oral tablet. Adult dosing for rheumatic diseases ranges from 200 mg to 400 mg per day (typically 5 mg/kg, maximum 400 mg daily). In some cases, higher doses are used. It can be taken as a single daily dose or in 2 divided doses if taking more than one tablet. It is recommended to be taken with food as some of the gastrointestinal side effects can be alleviated with food and fats. Symptoms can start to improve in one to two months, but it may take up to six months before the full benefits of this medication are experienced. Side Effects Hydroxychloroquine typically is very well tolerated. The most common side effects are nausea and diarrhea, which often improve with time. Less common side effects include rash, hair changes, and muscle weakness. Rarely, hydroxychloroquine can lead to anemia in some individuals. This can happen in individuals with a condition known as G6PD deficiency or porphyria. In rare cases, hydroxychloroquine can cause visual changes or loss of vision. Such problems are more likely to occur in individuals taking high doses for many years, in individuals 60 years or older, those with significant kidney or liver disease, and those with underlying retinal disease. At the recommended dose, the development of visual problems due to the medication is rare. It is recommended that you have an eye exam within the first year of use, then repeat every 1 to 5 years based on current guidelines. Additional rare reports of changes in the heart rhythm have been reported with the use of hydroxychloroquine, particularly in combination with other medications. While monitoring for this risk is not typical in the office setting, it has been indicated in hospitalized and critically ill patients to evaluate for interactions with other medications. Tell Your Rheumatology Provider Although there are few drug interactions with hydroxychloroquine, be sure to tell your rheumatology provider about all the medications you are taking, including [id number] drugs and natural remedies. Be sure to notify your other providers when taking this drug. This drug is not known to suppress your immune system but rather to alter some functions within it. Vaccines recommended for healthcare maintenance are generally acceptable. Notify your eye doctor when you are on this medication so regular visual screening tests can be performed. If you are , considering becoming , or lactating, please discuss with your rheumatology provider that you are taking this medication. Hydroxychloroquine has been shown to be safe during and . Updated October 2023 by Bhupendra Foreman MD, and reviewed by the [employer] [place] [employer] Committee on Communications and Marketing Assessment & Plan (04/27/2024 8:28 AM CDT): Screening Ophthalmological Evaluation Request Medication: Hydroxychloroquine (Plaquenil) Patient: Please obtain the following eye exam with your eye doctor before starting hydroxychloroquine (Plaquenil). Then, continue to obtain yearly eye exams (or as directed by your eye doctor) while taking Plaquenil. Provider: Please perform the following exams on an annual basis: Visual Acuity Visual Field testing Slit Lamp evaluation Color Vision Assessment OCT Arthritis of left acromioclavicular joint 2022 Overview (10/22/2022): Added automatically from request for surgery [id number] Biceps tendonitis on left 10/22/2022 Overview (10/22/2022): Added automatically from request for surgery [id number] Incomplete tear of left rotator cuff 10/22/2022 Overview (10/22/2022): Added automatically from request for surgery [id number] Disorder of shoulder 03/05/2022 Shoulder joint pain 03/05/2022 Synovitis and tenosynovitis 03/05/2022 Complex tear of medial meniscus of right knee Overview (10/18/2021): Added automatically from request for surgery [id number] Complex tear of lateral meniscus of right knee 0 10/18/2021 Overview (10/18/2021): Added automatically from request for surgery [id number] Chronic cough 09/03/2020 Chronic pansinusitis 09/03/2020 AVI (acute kidney injury) 01/05/2019 Reflux gastritis 09/14/2018 Deviated nasal septum 09/14/2018 Encounters Date Type Department Care Team Description 11/30/2024 11:10 AM TROUBLE SHOOTING MECHANIC - 11/30/2024 11:59 PM TROUBLE SHOOTING MECHANIC Hospital Encounter [address] [phone] Discharge Disposition: Discharge to home or self care 11/30/2024 10:34 AM TROUBLE SHOOTING MECHANIC - 11/30/2024 11:59 PM TROUBLE SHOOTING MECHANIC Hospital Encounter [facility] [address] [place] [phone] Arthralgia of both hands; Long-term use of hydroxychloroquine Discharge Disposition: Discharge to home or self care 11/30/2024 9:30 AM TROUBLE SHOOTING MECHANIC Office Visit [facility] Rheumatology at [address] [place] [phone] Lorenza Pickard, BULL Arthralgia of both hands (Primary Dx); Skin rash; Long-term use of hydroxychloroquine 11/30/2024 Results Follow-Up [facility] Rheumatology at [address] [place] [phone] Lorenza Pickard NP from Last 3 Months Immunizations Immunization Administration Dates Next Due Influenza, Quadrivalent, Spl it, Preservative Free, Intramuscular 11/27/2018 TD Preservative Free 09/28/2000,09/28/1993 Tdap 04/20/2013,09/23/2011 Surgical History Surgery Date Site/Laterality Comments APPENDECTOMY COLONOSCOPY NASAL SEPTUM SURGERY KNEE ARTHROSCOPY Right SHOULDER ARTHROPLASTY Left Medical History Medical History Date Comments Allergic rhinitis Hypertension Back pain High cholesterol Kidney disorder Acute renal failure (ARF) 09/2018 due to arthritis medicine, resolved when stopped taking Mitral valve prolapse Arthritis 8 years Sleep apnea Family History Medical History Relation Name Comments Cancer Brother Cyrus Bradley Cancer Father Asif Bradley Heart disease Father Asif Bradley Leukemia Father Asif Bradley Breast cancer Mother Thyroid disease Sister Autism Son Ej Bradley Developmental delay Son Ej Bradley Seizures Son Ej Bradley Relation Name Status Comments Brother Cyrus Bradley Father Asif Bradley Mother Alive Sister Alive Son Ej Bradley Alive Social History Tobacco Use Types Packs/Day Years Used Date Smoking Tobacco: Former Cigarettes 2 24 1 10/29/1983 - 08/28/2008 Smokeless Tobacco: Never Tobacco Cessation:Counseling Given: Not Answered Alcohol Use Standard Drinks/Week Comments Yes 4 (1 standard drink = 0.6 oz pur e alcohol) per week or less AUDIT-C Answer Date Recorded Q1: How often do you have a drink containing alc ohol? 2-4 times a month 07/20/2023 Q2: How many drinks containi ng alcohol do you have on a typical day when you are drinking? 1 or 2 07/20/2023 Q3: How often do you have si x or more drinks on one occasion? Never 07/20/2023 Personal Safety Answer Date Recorded Getting School Help Needed Denies 09/19 Sex and Gender Information Value Date Recorded Sex Assigned at Not on file Legal Sex Male 11:38 AM TROUBLE SHOOTING MECHANIC Gender Identity Not on file Sexual Orientation Not on file Obstetrics History Last Filed Vital Signs Vital Sign Reading Time Taken Comments Blood Pressure 130/72 11/30/2024 9:16 AM TROUBLE SHOOTING MECHANIC Pulse 68 11/30/2024 9:16 AM TROUBLE SHOOTING MECHANIC Temperature 36.6 C (97.9 F) 11/30/2024 9:16 AM TROUBLE SHOOTING MECHANIC Respiratory Rate 20 11/30/2024 9:16 AM TROUBLE SHOOTING MECHANIC Oxygen Saturation 96% 11/30/2024 9:16 AM TROUBLE SHOOTING MECHANIC Inhaled Oxygen Concentration - - Weight 92.1 kg (203 lb) 11/30/2024 9:16 AM TROUBLE SHOOTING MECHANIC Height 175.3 cm (5' 9 ) 11/30/2024 9:16 AM TROUBLE SHOOTING MECHANIC Body Mass Index 29.98 11/30/2024 9:16 AM TROUBLE SHOOTING MECHANIC Plan of Treatment Health Maintenance Due Date Last Done Comments Depression Screening 1960 Hepatitis C Screening 1960 Prostate Cancer Screening-PSA 1960 Hepatitis B Screening 01/15/1980 Regular Well Visit/Exam 18-64 01/15/1980 Pneumococcal vaccine <65 (1 of 2 - PCV) 1981 Zoster Vaccine (1 of 2) 1981 DTaP/Tdap/Td Vaccine (3 - Td or Tdap) 04/20/2023 04/20/2013, 09/23/2011, 09/28/2000, Additional history exists Colon Cancer Screening-Colonoscopy 11/14/2023 11/14/2013 Influenza Vaccine (Season Ended) 2025 11/28/19 19 Colon Cancer Screening-CT Colonography Discontinued 11/14/2013 Colon Cancer Screening-DNA Stool Discontinued 11/14/19 14 Colon Cancer Screening-FIT Discontinued 11/14/2013 Colon Cancer Screening-Sigmoidoscopy Discontinued 11/14/2013 Procedures Procedure Name Priority Date/Time Associated Diagnosis Comments XR FINGER THUMB LEFT Schedule Routine, Read Routine (OP Routine) 11/30/2024 10:55 AM TROUBLE SHOOTING MECHANIC Arthralgia of both hands Long-term use of hydroxychloroquine EGFR Routine 11/30/2024 9:59 AM TROUBLE SHOOTING MECHANIC Skin rash Long-term use of hydroxychloroquine DIFFERENTIAL AUTO Routine 11/30/2024 9:59 AM TROUBLE SHOOTING MECHANIC Skin rash Long-term use of hydroxychloroquine CBC WITH AUTO DIFFERENTIAL Routine 11/30/2024 9:59 AM TROUBLE SHOOTING MECHANIC Skin rash Long-term use of hydroxychloroquine COMPREHENSIVE METABOLIC PANEL Routine 11/30/2024 9:59 AM TROUBLE SHOOTING MECHANIC Skin rash Long-term use of hydroxychloroquine ERYTHROCYTE SEDIMENTATION RATE Routine 11/30/2024 9:59 AM TROUBLE SHOOTING MECHANIC Arthralgia of both hands CRP, HIGH SENSITIVITY Routine 11/30/2024 9:59 AM TROUBLE SHOOTING MECHANIC Arthralgia of both hands COLONOSCOPY 11/14/2013 12:00 AM TROUBLE SHOOTING MECHANIC from Last 3 Months or Most Recently Relevant to Health Maintenance Results * XR Finger Thumb Left Minimum 2 Views (11/30/2024 10:55 AM TROUBLE SHOOTING MECHANIC) Anatomical Region Laterality Modality Upper Extremities, Hand, Fingers Left Computed Radiography 11/30/2024 11:1 4 AM TROUBLE SHOOTING MECHANIC Impressions 11/30/2024 11:14 AM TROUBLE SHOOTING MECHANIC There is joint narrowing at multiple articulations, for example the 1st digit carpometacarpal, metacarpophalangeal and interphalangeal joints, as well as the PIP and DIP joints of the remaining digits. 1st digit interphalangeal narrowing has worsened compared with prior radiographs dated 07/20/2023. Small round lucencies along the head of the 1st digit proximal phalanx likely represent subchondral cysts. There is no fracture or acute osseous abnormality. Electronically signed by: Emile Ruelas M.D. Narrative 11/30/2024 11:14 AM TROUBLE SHOOTING MECHANIC XR FINGER THUMB LEFT MINIMUM 2 VIEWS: 11/30/2024 10:45 AM CLINICAL INDICATION: thumb pain. COMPARISON: Radiographs of the left hand dated 07/20/2023. Procedure Note Emile Ruelas MD - 11/30/2024 XR FINGER THUMB LEFT MINIMUM 2 VIEWS: 11/30/2024 10:45 AM CLINICAL INDICATION: thumb pain. COMPARISON: Radiographs of the left hand dated 07/20/2023. IMPRESSION: There is joint narrowing at multiple articulations, for example the 1st digit carpometacarpal, metacarpophalangeal and interphalangeal joints, as well as the PIP and DIP joints of the remaining digits. 1st digit interphalangeal narrowing has worsened compared with prior radiographs dated 07/20/2023. Small round lucencies along the head of the 1st digit proximal phalanx likely represent subchondral cysts. There is no fracture or acute osseous abnormality. Electronically signed by: Emile Ruelas M.D. Lorenza Pickard BACKEND JAVA DEVELOPER IMG XR PROCEDURES Final Resul t * eGFR (11/30/2024 9:59 AM TROUBLE SHOOTING MECHANIC) eGFR >90 >=60 mL/min/1. 73 m2 Comment: Interpretive Data Reference Interval Normal >/= 90 mL/min/1.73m2 Mildly decreased* 60 - 89 mL/min/1.73m2 Mildly to moderately decreased 45 - 59 mL/min/1.73m2 Moderately to severely decreased 30 - 44 mL/min/1.73m2 Severely decreased 15 - 29 mL/min/1.73m2 Kidney Failure < 15 mL/min/1.73m2 *Relative to young adult level Estimated glomerular filtration rate is determined by the 2020 CKD-EPI equation recommended by the National Kidney Foundation (A Unifying Approach to GFR Estimation: Recommendations of the NKF-ASK Task Force on Reassessing the Inclusion of Race in Diagnosing Kidney Disease, JASN 2020). The CKD-EPI equation should not be used for patients with unstable renal function and has not been validated in children and those over 70. Current interpretive data was last reviewed 2021. Blood 11/30/2024 9:59 AM TROUBLE SHOOTING MECHANIC 11/30/2024 1:08 PM TROUBLE SHOOTING MECHANIC Lorenza Pickard NP LAB BLOOD ORDERABLES Final Re sult [facility] [address] Department of Laboratories [place], [place] [phone] * Differential, auto (11/30/2024 9:59 AM TROUBLE SHOOTING MECHANIC) Neutrophil abs 3.3 1.5 - 6.5 K/cumm Imm gran abs 0.0 0.0 - 0.1 K/cumm [facility] Lymphocyte abs 1.4 0.8 - 3.3 K/cumm [facility] Monocyte abs 0.4 0.2 - 0.8 K/cumm [facility] Eosinophil abs 0.1 0.0 - 0.5 K/cumm [facility] Basophil abs 0.1 0.0 - 0.1 K/cumm [facility] Neutrophil pct 62.3 % [facility] Comment: Interpretive Data Percent cell count reference ranges are not reported, since discordance with absolute values may lead to misinterpretation of CBC data. Current Interpretive Data was last revised on 2018. Imm gran pct 0.4 % [facility] Comment: Interpretive Data Percent cell count reference ranges are not reported, since discordance with absolute values may lead to misinterpretation of CBC data. Current Interpretive Data was last revised on 2018. Lymphocyte pct 25.9 % [facility] Comment: Interpretive Data Percent cell count reference ranges are not reported, since discordance with absolute values may lead to misinterpretation of CBC data. Current Interpretive Data was last revised on 2018. Monocyte pct 7.9 % [facility] Comment: Interpretive Data Percent cell count reference ranges are not reported, since discordance with absolute values may lead to misinterpretation of CBC data. Current Interpretive Data was last revised on 2018. Eosinophil pct 2.6 % [facility] Comment: Interpretive Data Percent cell count reference ranges are not reported, since discordance with absolute values may lead to misinterpretation of CBC data. Current Interpretive Data was last revised on 2018. Basophil pct 0.9 % [facility] Comment: Interpretive Data Percent cell count reference ranges are not reported, since discordance with absolute values may lead to misinterpretation of CBC data. Current Interpretive Data was last revised on 2018. Blood 11/30/2024 9:59 AM TROUBLE SHOOTING MECHANIC 11/30/2024 12:55 PM TROUBLE SHOOTING MECHANIC us Lorenza Pickard NP LAB BLOOD ORDERABLES Final Re sult [facility] [address] Department [place] [address] * (ABNORMAL) CBC with auto differential (11/30/2024 9:59 AM TROUBLE SHOOTING MECHANIC) WBC 5.3 3.8 - 9.9 K/cumm Hgb 14.4 13.0 - 17.5 g/dL [facility] Hct 45.6 38.9 - 50.3 % [facility] Plt 224 150 - 400 K/cumm [facility] MPV 10.2 9.1 - 12.3 fL [facility] RBC 4.95 4.30 - 5.80 M/cumm [facility] MCV 92.1 81.3 - 96.4 fL [facility] MCH 29.1 27.1 - 33.3 pg [facility] MCHC 31.6(L) 32.3 - 35.7 g/dL [facility] RDW CV 12.9 11.1 - 14.9 % [facility] RDW SD 43.1 35.7 - 48.1 fL [facility] NRBC abs 0.00 0.00 - 0.01 K/cumm [facility] Blood 11/30/2024 9:59 AM TROUBLE SHOOTING MECHANIC 11/30/2024 12:55 PM TROUBLE SHOOTING MECHANIC Lorenza Pickard BACKEND JAVA DEVELOPER LAB BLOOD ORDERABLES Final Re sult Performing Organization Address [facility] Co de Phone Number [facility] [address] [employer] [place], [place] [id number] * Erythrocyte sedimentation rate (11/30/2024 9:59 AM TROUBLE SHOOTING MECHANIC) [facility] Erythrocyte sedimentation rate 15 1 - 20 mm/hr Blood 11/30/2024 9:59 AM TROUBLE SHOOTING MECHANIC 11/30/2024 12:55 PM TROUBLE SHOOTING MECHANIC Lorenza Pickard BACKEND JAVA DEVELOPER LAB BLOOD ORDERABLES Final Re sult Performing Organization Address City/[facility] Co de Phone Number [facility] [address] [facility] [place] [address] * CRP (cardiac risk) (11/30/2024 9:59 AM TROUBLE SHOOTING MECHANIC) [facility] hsCRP 4.87 mg/L Comment: Interpretive data Adult only - values greater than or equal to 10 mg/L are consistent with infection or inflammation. Individuals with evidence of active infection, systemic inflammatory processes, or trauma should not be tested until these conditions have abated. When using HS CRP to assess cardiovascular risk, two measurements should be taken, two weeks apart (averaging results). The CDC/AHA recommended the following HS CRP cut off points (tertiles) for CVD assessment. Adult low risk <1.0 mg/L Average risk 1.0 - 3.0 mg/L High Risk >3.0 mg/L Current interpretive data was last revised on 2018. Blood 11/30/2024 9:59 AM TROUBLE SHOOTING MECHANIC 11/30/2024 1:08 PM TROUBLE SHOOTING MECHANIC us Lorenza Pickard NP LAB BLOOD ORDERABLES Final Re sult [facility] [address] Department [place] [address] * Comprehensive metabolic panel (11/30/2024 9:59 AM TROUBLE SHOOTING MECHANIC) Sodium 136 135 - 145 mmol/L Potassium, pl 4.5 3.3 - 4.9 mmol/L [facility] Chloride 104 97 - 110 mmol/L [facility] CO2 23 22 - 32 mmol/L [facility] Anion gap 9 2 - 15 mmol/L [facility] BUN 18 6 - 25 mg/dL [facility] Creatinine 0.87 0.80 - 1.30 mg/dL [facility] Glucose 119 70 - 199 mg/dL [facility] Comment: Interpretive Data Fasting glucose >/= 126 mg/dl is diagnostic for diabetes. Fasting is defined as no caloric intake for at least 8 hours. Fasting glucose between 100 mg/dl to 125 mg/dl is diagnostic of prediabetes. In a patient with classic symptoms of hyperglycemia or hyperglycemic crisis, a random glucose >/= 200 mg/dl is diagnostic for diabetes. In the absence of unequivocal hyperglycemia, results should be confirmed by repeat testing. The classification and Diagnosis of Diabetes Diabetes Care 2021; 46: S19-S40. Current interpretive data was last revised 2022. Calcium 9.1 8.5 - 10.3 mg/dL [facility] Bilirubin, total 0.4 0.1 - 1.2 mg/dL [facility] Protein, pl 7.2 6.5 - 8.5 g/dL [facility] Albumin 4.3 3.5 - 5.0 g/dL [facility] Alk phos 64 40 - 130 Units/L [facility] ALT 21 7 - 55 Units/L [facility] AST 28 10 - 50 Units/L [facility] Blood 11/30/2024 9:59 AM TROUBLE SHOOTING MECHANIC 11/30/2024 1:08 PM TROUBLE SHOOTING MECHANIC us Lorenza Pickard BACKEND JAVA DEVELOPER LAB BLOOD ORDERABLES Final Re sult [facility] [address] Department [place] [address] * COLONOSCOPY (11/14/2013 12:00 AM TROUBLE SHOOTING MECHANIC) Anatomical Region Laterality Modality Other Narrative 11/14/2013 12:00 AM TROUBLE SHOOTING MECHANIC Ordered by an unspecified provider. Procedure Note Provider, MD Jewell - 11/14/2013 12:00 AM CST PROCEDURE REPORT Patient: NAZ BRADLEY Account: [id number] Room No: : 1960 Patient Type: [facility] Attend.: Larry Granados M.D. Admit Date: 11/14/2013 Dict.: Larry Granados M.D. Disch. Date: 11/14/2013 NAME OF PROCEDURE: Colonoscopy. HISTORY OF PRESENT ILLNESS 53-year-old male presents for screening colonoscopy. PHYSICAL EXAMINATION Well developed male. Lungs are clear. Cardiovascular exam isunremarkable. PROCEDURE Colonoscopy was performed with the Olympus video endoscope. The patientwas premedicated by anesthesia. On digital exam, no abnormalities werepalpable. We inserted the endoscope and advanced it to the cecum. The colon waswell-prepped and visualized. We carefully searched the colonic mucosa. On withdrawal,could find no evidence of inflammation or neoplasia anywhere through the lengthof the bowel. The patient tolerated the procedure without difficulty. POSTOPERATIVE DIAGNOSIS Normal colonoscopy. PLAN Surveillance 10 years. Larry Granados M.D. /kiera TD: 11/15/2013 03:28 CC: Zachary Norris M.D. Authenticated by Larry Granados MD On 11/15/2013 11:04:40 AM us Historical Provider ENDOSCOPY PROCEDURES Delmi l Result from Last 3 Months or Most Recently Relevant to Health Maintenance Insurance [facility] [place] Care Teams Warp Worker Relationship Specialty Start Date End Date Nhung Mixon MD PCP - General Family Medicine 07/18/21 Radha Velásquez PA Physician Director Of Adult Epilepsy Orthopedic Surgery 10/21/21 Bhupendra iWley NP [address] [facility] [address] [place] [id number] Nurse Practitioner Nurse Practitioner 11/11/22
--- OUTSIDE RECORDS SUMMARY | 2025-02-01 08:30 | XMS_ITS | Referral Summary ---
Author Organization [facility] Address [address] [place] [address] Care Team Providers Care Industrial Relations Counselor Name Role Phone Nhung Mixon MD Primary Care Provider [phone] Radha Velásquez PA Unavailable [phone] Bhupendra Wiley NP Unavailable [phone] Encounters Date Type Department Care Team Description 11/30/2024 Results Follow-Up [facility] Rheumatology at [address] [place] [id number] Lorenza Pickard NP 11/30/2024 11:10 AM DECORATIVE CUTTING MACHINE TENDER - 11/30/2024 11:59 PM DECORATIVE CUTTING MACHINE TENDER Hospital Encounter [address] [address] Discharge Disposition: Discharge to home or self care 11/30/2024 10:34 AM DECORATIVE CUTTING MACHINE TENDER - 11/30/2024 11:59 PM DECORATIVE CUTTING MACHINE TENDER Hospital Encounter [facility] [address] [place] [address] Arthralgia of both hands; Long-term use of hydroxychloroquine Discharge Disposition: Discharge to home or self care 11/30/2024 9:30 AM DECORATIVE CUTTING MACHINE TENDER Office Visit [facility] Rheumatology at [address], [place] [address] Burnitt, Lorenza A., LIFE MANAGEMENT TEACHER Arthralgia of both hands (Primary Dx); Skin rash; Long-term use of hydroxychloroquine from Last 3 Months Allergies Active Allergy Reactions Criticality Noted Date [...] 04/27/2024 Assessment & Plan (11/30/2024 9:57 AM DECORATIVE CUTTING MACHINE TENDER): Degenerative and past inflammatory changes. Past elevation [...] 04/27/2024 Assessment & Plan (11/30/2024 9:58 AM DECORATIVE CUTTING MACHINE TENDER): Hydroxychloroquine (Plaquenil) is a disease-modifying anti-rheumatic drug [...] all the medications you are taking, including owtz-mur-[id number] drugs and natural remedies. Be sure to [...] Bhupendra Foreman MD, and reviewed by the [employer] Committee on Communications and [...] (10/22/2022): Added automatically from request for surgery [id number] Biceps tendonitis on left 10/22/2022 Overview (10/22/2022): Added automatically from request for surgery [id number] Incomplete tear of left rotator cuff 10/22/2022 Overview (10/22/2022): Added automatically from request for surgery [id number] Disorder of shoulder 03/05/2022 Shoulder joint pain 03/05/2022 Synovitis and tenosynovitis 03/05/2022 Complex tear of medial meniscus of right knee Overview (10/18/2021): Added automatically from request for surgery [id number] Complex tear of lateral meniscus of right knee 0 10/18/2021 Overview (10/18/2021): Added automatically from request for surgery [id number] Chronic cough 09/03/2020 Chronic pansinusitis 09/03/2020 AVI (acute kidney injury) 01/05/2019 Reflux gastritis 09/14/2018 Deviated nasal septum 09/14/2018 Immunizations Immunization Administration Dates Next Due Influenza, Quadrivalent, Spl it, Preservative Free, Intramuscular 11/27/2018 TD Preservative Free 09/28/2000,09/28/1993 Tdap 04/20/2013,09/23/2011 Social History Tobacco Use Types Packs/Day Years [...] on file Legal Sex Male 11:38 AM DECORATIVE CUTTING MACHINE TENDER Gender Identity Not on file Sexual Orientation Not on file Last Filed Vital Signs Vital Sign Reading Time Taken Comments Blood Pressure 130/72 11/30/2024 9:16 AM DECORATIVE CUTTING MACHINE TENDER Pulse 68 11/30/2024 9:16 AM DECORATIVE CUTTING MACHINE TENDER Temperature 36.6 C (97.9 F) 11/30/2024 9:16 AM DECORATIVE CUTTING MACHINE TENDER Respiratory Rate 20 11/30/2024 9:16 AM DECORATIVE CUTTING MACHINE TENDER Oxygen Saturation 96% 11/30/2024 9:16 AM DECORATIVE CUTTING MACHINE TENDER Inhaled Oxygen Concentration - - Weight 92.1 kg (203 lb) 11/30/2024 9:16 AM DECORATIVE CUTTING MACHINE TENDER Height 175.3 cm (5' 9 ) 11/30/2024 9:16 AM DECORATIVE CUTTING MACHINE TENDER Body Mass Index 29.98 11/30/2024 9:16 AM DECORATIVE CUTTING MACHINE TENDER Plan of Treatment Not on file Procedures Procedure Name Priority Date/Time Associated Diagnosis Comments XR FINGER THUMB LEFT Schedule Routine, Read Routine (OP Routine) 11/30/2024 10:55 AM DECORATIVE CUTTING MACHINE TENDER Arthralgia of both hands Long-term use of hydroxychloroquine EGFR Routine 11/30/2024 9:59 AM DECORATIVE CUTTING MACHINE TENDER Skin rash Long-term use of hydroxychloroquine DIFFERENTIAL AUTO Routine 11/30/2024 9:59 AM DECORATIVE CUTTING MACHINE TENDER Skin rash Long-term use of hydroxychloroquine CBC WITH AUTO DIFFERENTIAL Routine 11/30/2024 9:59 AM DECORATIVE CUTTING MACHINE TENDER Skin rash Long-term use of hydroxychloroquine COMPREHENSIVE METABOLIC PANEL Routine 11/30/2024 9:59 AM DECORATIVE CUTTING MACHINE TENDER Skin rash Long-term use of hydroxychloroquine ERYTHROCYTE SEDIMENTATION RATE Routine 11/30/2024 9:59 AM DECORATIVE CUTTING MACHINE TENDER Arthralgia of both hands CRP, HIGH SENSITIVITY Routine 11/30/2024 9:59 AM DECORATIVE CUTTING MACHINE TENDER Arthralgia of both hands COLONOSCOPY 11/14/2013 12:00 AM DECORATIVE CUTTING MACHINE TENDER from Last 3 Months or Most Recently Relevant to Health Maintenance Results * XR Finger Thumb Left Minimum 2 Views (11/30/2024 10:55 AM DECORATIVE CUTTING MACHINE TENDER) Anatomical Region Laterality Modality Upper Extremities, Hand, Fingers Left Computed Radiography 11/30/2024 11:1 4 AM DECORATIVE CUTTING MACHINE TENDER Impressions 11/30/2024 11:14 AM DECORATIVE CUTTING MACHINE TENDER There is joint narrowing at multiple articulations, [...] Emile Ruelas M.D. Narrative 11/30/2024 11:14 AM DECORATIVE CUTTING MACHINE TENDER XR FINGER THUMB LEFT MINIMUM 2 VIEWS: [...] signed by: Emile Ruelas M.D. Lorenza Pickard LIFE MANAGEMENT TEACHER IMG XR PROCEDURES Final Resul t * eGFR (11/30/2024 9:59 AM DECORATIVE CUTTING MACHINE TENDER) eGFR >90 >=60 mL/min/1. 73 m2 Comment: [...] of Race in Diagnosing Kidney Disease, JASN 202). The CKD-EPI equation should not be used for patients with unstable renal function and has not been validated in children and those over 70. Current interpretive data was last reviewed 2021. Blood 11/30/2024 9:59 AM DECORATIVE CUTTING MACHINE TENDER 11/30/2024 1:08 PM DECORATIVE CUTTING MACHINE TENDER Lorenza Pickard LIFE MANAGEMENT TEACHER LAB BLOOD ORDERABLES Final Re sult [facility] [address] Department [place] [address] * Differential, auto (11/30/2024 9:59 AM DECORATIVE CUTTING MACHINE TENDER) Neutrophil abs 3.3 1.5 - 6.5 K/cumm Imm gran abs 0.0 0.0 - 0.1 K/cumm [facility] Lymphocyte abs 1.4 0.8 - 3.3 K/cumm [facility] Monocyte abs 0.4 0.2 - 0.8 K/cumm [facility] Eosinophil abs 0.1 0.0 - 0.5 K/cumm [facility] Basophil abs 0.1 0.0 - 0.1 K/cumm [facility] Neutrophil pct 62.3 % [facility] Comment: Interpretive Data Percent cell count reference ranges are not reported, since discordance with absolute values may lead to misinterpretation of CBC data. Current Interpretive Data was last revised on 2018. Imm gran pct 0.4 % [facility] Comment: Interpretive Data Percent cell count reference ranges are not reported, since discordance with absolute values may lead to misinterpretation of CBC data. Current Interpretive Data was last revised on 2018. Lymphocyte pct 25.9 % [facility] Comment: Interpretive Data Percent cell count reference ranges are not reported, since discordance with absolute values may lead to misinterpretation of CBC data. Current Interpretive Data was last revised on 2018. Monocyte pct 7.9 % [facility] Comment: Interpretive Data Percent cell count reference ranges are not reported, since discordance with absolute values may lead to misinterpretation of CBC data. Current Interpretive Data was last revised on 2018. Eosinophil pct 2.6 % [facility] Comment: Interpretive Data Percent cell count reference ranges are not reported, since discordance with absolute values may lead to misinterpretation of CBC data. Current Interpretive Data was last revised on 2018. Basophil pct 0.9 % [facility] Comment: Interpretive Data Percent cell count reference ranges are not reported, since discordance with absolute values may lead to misinterpretation of CBC data. Current Interpretive Data was last revised on 2018. Blood 11/30/2024 9:59 AM DECORATIVE CUTTING MACHINE TENDER 11/30/2024 12:55 PM DECORATIVE CUTTING MACHINE TENDER Lorenza Pickard LIFE MANAGEMENT TEACHER LAB BLOOD ORDERABLES Final Re sult Performing Organization Address [facility]/ZIP Co de Phone Number [facility] [address] [place] [address] * (ABNORMAL) CBC with auto differential (11/30/2024 9:59 AM DECORATIVE CUTTING MACHINE TENDER) WBC 5.3 3.8 - 9.9 K/cumm Hgb 14.4 13.0 - 17.5 g/dL [facility] Hct 45.6 38.9 - 50.3 % [facility] Plt 224 150 - 400 K/cumm [facility] MPV 10.2 9.1 - 12.3 fL [facility] RBC 4.95 4.30 - 5.80 M/cumm [facility] MCV 92.1 81.3 - 96.4 fL [facility] MCH 29.1 27.1 - 33.3 pg [facility] MCHC 31.6(L) 32.3 - 35.7 g/dL [facility] RDW CV 12.9 11.1 - 14.9 % [facility] RDW SD 43.1 35.7 - 48.1 fL [facility] NRBC abs 0.00 0.00 - 0.01 K/cumm [facility] Blood 11/30/2024 9:59 AM DECORATIVE CUTTING MACHINE TENDER 11/30/2024 12:55 PM DECORATIVE CUTTING MACHINE TENDER us Lorenza Pickard LIFE MANAGEMENT TEACHER LAB BLOOD ORDERABLES Final Re sult Performing Organization Address City/[facility]/ZIP Co de Phone Number [facility] [address] Department [employer] [place], [place] [id number] * Erythrocyte sedimentation rate (11/30/2024 9:59 AM DECORATIVE CUTTING MACHINE TENDER) Pathologist [facility] Erythrocyte sedimentation rate 15 1 - 20 mm/hr Blood 11/30/2024 9:59 AM DECORATIVE CUTTING MACHINE TENDER 11/30/2024 12:55 PM DECORATIVE CUTTING MACHINE TENDER Lorenza Pickard LIFE MANAGEMENT TEACHER LAB BLOOD ORDERABLES Final Re sult Performing Organization Address [facility] Co de Phone Number [facility] [address] [facility] [place] [address] * CRP (cardiac risk) (11/30/2024 9:59 AM DECORATIVE CUTTING MACHINE TENDER) Pathologist [facility] hsCRP 4.87 mg/L Comment: Interpretive data Adult [...] revised on 2018. Blood 11/30/2024 9:59 AM DECORATIVE CUTTING MACHINE TENDER 11/30/2024 1:08 PM DECORATIVE CUTTING MACHINE TENDER Lorenza Pickard LIFE MANAGEMENT TEACHER LAB BLOOD ORDERABLES Final Re sult Performing Organization Address [facility] Co de Phone Number [facility] [address] [place] [address] * Comprehensive metabolic panel (11/30/2024 9:59 AM DECORATIVE CUTTING MACHINE TENDER) [facility] Sodium 136 135 - 145 mmol/L Potassium, pl 4.5 3.3 - 4.9 mmol/L [facility] Chloride 104 97 - 110 mmol/L [facility] CO2 23 22 - 32 mmol/L [facility] Anion gap 9 2 - 15 mmol/L [facility] BUN 18 6 - 25 mg/dL [facility] Creatinine 0.87 0.80 - 1.30 mg/dL [facility] Glucose 119 70 - 199 mg/dL [facility] Comment: Interpretive Data Fasting glucose >/= 126 [...] 2022. Calcium 9.1 8.5 - 10.3 mg/dL [facility] Bilirubin, total 0.4 0.1 - 1.2 mg/dL [facility] Protein, pl 7.2 6.5 - 8.5 g/dL [facility] Albumin 4.3 3.5 - 5.0 g/dL [facility] Alk phos 64 40 - 130 Units/L [facility] ALT 21 7 - 55 Units/L [facility] AST 28 10 - 50 Units/L [facility] Blood 11/30/2024 9:59 AM DECORATIVE CUTTING MACHINE TENDER 11/30/2024 1:08 PM DECORATIVE CUTTING MACHINE TENDER us Lorenza Pickard NP LAB BLOOD ORDERABLES Final Re sult [facility] [address] Department [place] [address] * COLONOSCOPY (11/14/2013 12:00 AM DECORATIVE CUTTING MACHINE TENDER) Anatomical Region Laterality Modality Other Narrative 11/14/2013 12:00 AM DECORATIVE CUTTING MACHINE TENDER Ordered by an unspecified provider. Procedure Note Provider, MD Jewell - 11/14/2013 12:00 AM CST PROCEDURE REPORT Patient: NAZ BRADLEY Account: [id number] Room No: : 1960 Patient Type: SDS Attend.: Larry Granados M.D. Admit Date: 11/14/2013 [...] PLAN Surveillance 10 years. Larry Granados M.D. DR/kiera TD: 11/15/2013 03:28 CC: Zachary Norris M.D. Authenticated by Larry Granados MD On 11/15/2013 11:04:40 AM Historical Provider ENDOSCOPY PROCEDURES Delmi l Result from Last 3 Months or Most Recently Relevant to Health Maintenance Insurance [facility] [place] Care Teams Industrial Relations Counselor Relationship Specialty Start Date End Date Nhung Mixon MD PCP - General Family Medicine 07/18/21 Radha Velásquez PA Physician [employer] Consultant Orthopedic Surgery 10/21/21 Bhupendra Wiley NP [address] [place] [address] [place] [address] Nurse Practitioner Nurse Practitioner 11/11/22
--- NOTE | 2025-02-01 08:41 | ED_ITS ---
HPI - Fever General Chief Complaint: Fever Stated Complaint: fever, kidney flank pain Time Seen by Provider: 02/01/25 08:41 Source: patient Mode of arrival: ambulatory Limitations: no limitations History of Present Illness HPI Narrative: 65-year-old male ex-smoker with a history of connective tissue disease on chloroquine, B12 deficiency, arthritis, anemia, dyslipidemia, H pylori gastritis, hypertension, renal failure in 2019 presented to the ED with a 1 day history of -- fever with a T-max 102?. no upper respiratory tract symptoms. -- left flank pain. No dysuria or hematuria. MD elicited complaint: fever Onset (ago): day(s) ( One day) Measured temperature: 102 C Exacerbating factors: nothing Relieving factors: nothing Associated symptoms: denies other symptoms and back/flank pain ( left CVA angle pain) Treatments prior to arrival fever: none Related Data Home Medications ?Medication ?Instructions ?Recorded ?Confirmed ?Last Taken ?Type hydroxychloroquine 200 mg tablet 200 mg PO BID 09/07/23 09/13/24 04/05/24 History Allergies Allergy/AdvReac Type Severity Reaction Status Date / Time NSAIDS (Non-Steroidal AdvReac Other Verified 02/01/25 08:34 Anti-Inflamma tape AdvReac Rash Uncoded 02/01/25 08:34 Review of Systems 2 Review of Systems: All systems reviewed & are unremarkable except as noted in HPI and below Constitutional: Constitutional: Reports as per HPI and Reports no additional constitutional complaints Eyes: Eyes: Reports as per HPI and Reports no additional eye complaints ENT: Reports system reviewed and no additional complaints, except as documented and Reports as per HPI Cardiovascular: Cardiovascular: Reports as per HPI and Reports no additional cardiovascular complaints Respiratory: Respiratory: Reports as per HPI and Reports no additional respiratory complaints Gastrointestinal: Gastrointestinal: Reports as per HPI and Reports no additional gastrointestinal complaints Genitourinary: Genitourinary: Reports no additional male genitourinary complaints Musculoskeletal: Musculoskeletal: Reports no additional musculoskeletal complaints, Reports as per HPI and Reports back pain ( left flank pain) Integumentary/Breasts: Skin/Breast: Reports system reviewed and no additional complaints, except as docu and Reports as per HPI Neurologic: Reports system reviewed and no additional complaints, except as documented and Reports as per HPI Psychiatric: Psychiatric: Reports no additional psychiatric complaints and Reports as per HPI Endocrine: Endocrine: Reports no additional endocrine complaints and Reports as per HPI Hematologic/Lymphatic: Hematologic/Lymphatic: Reports no additional hematologic/lymphatic complaints and Reports as per HPI Allergic/Immunologic: Allergic/Immunologic: Reports no additional allergic/immunologic complaints and Reports as per HPI PMFSH Past Medical History Medical History Helicobacter positive gastritis Arthralgia Encounter for immunization Encounter for immunization Vitamin B12 deficiency Arthritis of knee, right Severe low back pain Anemia of unknown etiology MVP (mitral valve prolapse) Hypercholesterolemia Surgical History Surgical History History of surgery on arm [place] teeth extracted History of appendectomy Family History Family History Other Diabetes mellitus Family history of malignant neoplasm of bone Social History Social History Smoking packs per day: 1.5 Smoking cigarettes per day: 30.0 Years smoked: 20 Smoking pack-years: 30.00 Smoking status: Former smoker Tobacco type: cigarettes Second hand tobacco smoke exposure: No Smoking end date: 09/28/07 Alcohol intake: current Drinks per week: 3 Alcohol use details: consumes 1 mixed drinks weekly Substance use: never Substance use type: does not use Lack of Transportation: No Lack of Food: Never True Current Housing: I Have Housing Concerned About Future Housing: No Difficulty Paying Gas/Electric Bills: No Difficulty Paying for Meds: No Currently Unemployed: No Education: High School Diploma/GED Difficulty w/ Childcare or Family Care: No Living arrangements: with family Additional living arrangements comments: with sp Occupation/Education: occupation 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 Oxygen saturation of 98% with a respiratory rate of 18. Const: General: healthy appearing Nutritional Appearance: well nourished Orientation/consciousness: patient oriented x3 Limitations: no limitations HENMT: Head: normal to inspection Ears: external ears normal F qiana/Nose/Sinus: Normal external nose present Face and sinus: normal facial exam Mouth: Yes Normal oral and palatal mucosa present Throat: posterior oropharynx normal Eyes: Conjunctivae: conjunctivae normal Pupils: Equal, round and reactive pupils present EOM: EOMs intact bilaterally Direct Ophthalmoscopy: no photophobia Neck: Neck: normal visual inspection, no lymphadenopathy and no meningeal signs Chest: Chest palpation & inspection: normal inspection of the chest Resp: Effort & Inspection: normal respiratory effort Auscultation: clear to auscultation bilaterally Cardio: Rate: regular rate Rhythm: regular rhythm GI: GI Palp: Yes Soft to palpation Auscultation: normal bowel sounds O ther: No tenderness/ rigidity /rebound : General: Yes CVA tenderness ( tenderness in the left CVA angle.) on the left Back/Spine/Pelvis: Back: CVA tenderness Skin: General skin exam: normal color Rashes: no rashes Neuro: General: patient oriented x3, moves all extremities, no meningeal signs, no focal motor deficits and CN's II-XI intact bilaterally Cranial nerves: Yes Nystagmus not present Speech: normal speech Gait exam (Neuro): Normal gait present Extrem: General: normal to inspection and no clubbing, cyanosis or edema Psych: Appearance: grossly normal Mental Status: mental status grossly normal Affect: normal affect Attitude: cooperative Course [employer]/PA Physician Supervision Febrile illness left flank pain neutropenia possibly secondary to chloroquine, omeprazole Vital Signs Vital signs: Vital Signs Temperature 36.6 C 02/01/25 08:30 Pulse Rate 78 02/01/25 08:30 Respiratory Rate 18 02/01/25 08:30 Blood Pressure 139/81 02/01/25 08:30 Pulse Oximetry 98 02/01/25 08:30 Oxygen Delivery Room Air 02/01/25 08:30 Temperature 36.6 C 02/01/25 08:30 Pulse Rate 78 02/01/25 08:30 Respiratory Rate 18 02/01/25 08:30 Blood Pressure 139/81 02/01/25 08:30 Pulse Oximetry 98 02/01/25 08:30 Oxygen Delivery Room Air 02/01/25 08:30 MDM - Fever MDM Narrative Medical decision making narrative: febrile illness neutropenia Differential Diagnosis Differential diagnosis: Likely gastroenteritis and viral infection Medical Records Attestation: I reviewed the patient's medical records. Lab Data Attestation: I reviewed the patient's lab results. 02/01/25 09:11 02/01/25 09:11 Labs: Lab Results 02/01/25 02/01/25 02/01/25 Range/Units 09:10 09:11 09:55 WBC 2.5 L (4.8-10.8) K/mm3 RBC 4.98 (4.70-6.10) M/mm3 Hgb 14.6 (14.0-18.0) g/dL Hct 45.9 (40.0-54.0) % MCV 92.2 (78.0-102.0) fL MCH 29.3 (27.0-31.0) pg MCHC 31.8 L (32-36) g/dL RDW 12.8 (11.6-14.4) % Plt Count 139 L (150-420) K/mm3 MPV 8.9 (8.7-11.0) fl Immature Gran % (Auto) Not Reportable Neut % (Auto) Not Reportable Lymph % (Auto) Not Reportable Foster % (Auto) Not Reportable Eos % (Auto) Not Reportable Baso % (Auto) Not Reportable Lymph # (Auto) Not Reportable Foster # (Auto) Not Reportable Eos # (Auto) Not Reportable Baso # (Auto) Not Reportable Abs Immat Gran (auto) Not Reportable Absolute Neuts (auto) Not Reportable Absolute Nucleated RBC Not Reportable Total Counted 100 Neutrophils % (Manual) 71 (46-73) % Band Neutrophils % 1 (0-6) % Lymphocytes % (Manual) 24 (18-44) % Monocytes % (Manual) 4 (3-9) % Nucleated RBC % Not Reportable Abs Neuts (Manual) 1.80 (1.3-6.7) K/mm3 Abs Lymphs (Manual) 0.60 L (1.1-4.5) K/mm3 Abs Monocytes (Manual) 0.10 (0.1-0.90) K/mm3 Nucleated RBCs 1 % Platelet Estimate Adequate (Adequate) Hypochromasia 1+ Anisocytosis 2+ Schistocytes None seen Sodium 136 (136-145) mmol/L Potassium 3.9 (3.5-5.1) mmol/L Chloride 101 (98-108) mmol/L Carbon Dioxide 28 (21-32) mmol/L Anion Gap 7 (4-12) mmol/L BUN 12 (7-18) mg/dL Creatinine 1.06 (0.70-1.30) mg/dL Estim Creat Clear Calc 69 ml/min Estimated GFR > 60 (59 - ) Glucose 100 H (70-99) mg/dL Calculated Osmolality 281 L (285-295) mOsm/kg Lactic Acid 1.0 (0.4-2.0) mmol/L Uric Acid 5.1 (3.5-7.2) mg/dL Calcium 8.9 (8.5-10.1) mg/dL Total Bilirubin 0.4 (0.00-1.00) mg/dL AST 36 (15-37) U/L ALT 45 (16-63) U/L Alkaline Phosphatase 60 (46-116) U/L Total Creatine Kinase 208 (39-308) U/L Total Protein Pending Albumin 3.5 (3.4-5.0) g/dL Lipase 53 (16-77) U/L Urine Color Light yellow (Yellow) Urine Appearance Clear (Clear) Urine pH 6.0 (5.0-8.0) Ur Specific [place] <= 1.005 L (1.010-1.020) Urine Protein Negative (Negative) Urine Glucose (UA) Negative (Negative) Urine Ketones Negative (Negative) Ur Blood (Man) Negative (Negative) Urine Nitrate Negative (Negative) Urine Bilirubin Negative (Negative) Urine Urobilinogen 0.2 (0.2-1.0) mg/dL Leukocyte Esterase Rfl Negative (Negative) MAURICE/UL Influenza A (RT-PCR) Negative (Negative) Influenza B (RT-PCR) Negative (Negative) RSV (RT-PCR) Negative (Negative) SARS-CoV-2 RNA (RT-PCR) Negative (Negative) Discharge Plan Discharge Clinical Impression: Febrile illness, Neutropenia, Back pain Patient Disposition: Home Condition: Stable Instructions: Antibiotic Form, Neutropenia (ED), Back Pain (ED) Additional Instructions: stop chloroquine and omeprazole Patient Language: Salvadorean Prescriptions: No Action hydroxychloroquine 200 mg tablet 200 mg PO BID omeprazole 40 mg capsule,delayed release(DR/EC) 40 mg PO DAILY Qty: 30 0RF ferrous sulfate 325 mg (65 mg iron) tablet 325 mg PO DAILY Qty: 100 3RF pravastatin 20 mg tablet 20 mg PO DAILY Qty: 90 1RF amlodipine 5 mg tablet 5 mg PO DAILY Qty: 90 1RF tramadol 50 mg tablet 50 mg PO Q6H PRN (Reason: pain) Qty: 100 0RF Follow-up/Referrals: Nhung Mixon MD [Primary Care Provider] - Time of Disposition: 10:24
--- OUTSIDE RECORDS SUMMARY | 2025-02-01 09:14 | XMS_ITS | Clinical Summary ---
Author Organization [facility] Address [address] [place] [id number] Care Team Providers Care Endodontist Name Role Phone Miky Norris MD Primary Care Provider [phone] Social History Tobacco Use Types Packs/Day Years [...] age to complete this topic Care Teams Endodontist Relationship Specialty Start Date End Date Miky Norris MD [address] [place] [address] PCP - General 10/13/13
--- OUTSIDE RECORDS SUMMARY | 2025-02-01 09:15 | XMS_ITS | Referral Summary ---
Author Organization [facility] Address [address] [place] [address] Care Team Providers Care Tire Beader Maker Name Role Phone Nhung Mixon MD Primary Care Provider [phone] Radha Velásquez PA Unavailable [phone] Bhupendra Wiley NP Unavailable [phone] Encounters Date Type Department Care Team Description 11/30/2024 Results Follow-Up [facility] Rheumatology at [address] [place] [id number] Lorenza Pickard NP 11/30/2024 11:10 AM MOTION PICTURE NARRATOR - 11/30/2024 11:59 PM MOTION PICTURE NARRATOR Hospital Encounter [address] [address] Discharge Disposition: Discharge to home or self care 11/30/2024 10:34 AM MOTION PICTURE NARRATOR - 11/30/2024 11:59 PM MOTION PICTURE NARRATOR Hospital Encounter [facility] [address] [place] [address] Arthralgia of both hands; Long-term use of hydroxychloroquine Discharge Disposition: Discharge to home or self care 11/30/2024 9:30 AM MOTION PICTURE NARRATOR Office Visit [facility] Rheumatology at [address], [place] [address] Burnitt, Lorenza A., SUPERVISOR [employer] Arthralgia of both hands (Primary Dx); Skin [...] 04/27/2024 Assessment & Plan (11/30/2024 9:57 AM MOTION PICTURE NARRATOR): Degenerative and past inflammatory changes. Past elevation [...] 04/27/2024 Assessment & Plan (11/30/2024 9:58 AM MOTION PICTURE NARRATOR): Hydroxychloroquine (Plaquenil) is a disease-modifying anti-rheumatic drug [...] all the medications you are taking, including fiti-noy-ugdiyid drugs and natural remedies. Be sure to [...] Bhupendra Foreman MD, and reviewed by the [place] [employer] Committee on Communications and [...] (10/22/2022): Added automatically from request for surgery [id number] Biceps tendonitis on left 10/22/2022 Overview (10/22/2022): Added automatically from request for surgery [id number] Incomplete tear of left rotator cuff 10/22/2022 Overview (10/22/2022): Added automatically from request for surgery [id number] Disorder of shoulder 03/05/2022 Shoulder joint pain 03/05/2022 Synovitis and tenosynovitis 03/05/2022 Complex tear of medial meniscus of right knee Overview (10/18/2021): Added automatically from request for surgery [id number] Complex tear of lateral meniscus of right knee 0 10/18/2021 Overview (10/18/2021): Added automatically from request for surgery [id number] Chronic cough 09/03/2020 Chronic pansinusitis 09/03/2020 AVI [...] on file Legal Sex Male 11:38 AM MOTION PICTURE NARRATOR Gender Identity Not on file Sexual Orientation Not on file Last Filed Vital Signs Vital Sign Reading Time Taken Comments Blood Pressure 130/72 11/30/2024 9:16 AM MOTION PICTURE NARRATOR Pulse 68 11/30/2024 9:16 AM MOTION PICTURE NARRATOR Temperature 36.6 C (97.9 F) 11/30/2024 9:16 AM MOTION PICTURE NARRATOR Respiratory Rate 20 11/30/2024 9:16 AM MOTION PICTURE NARRATOR Oxygen Saturation 96% 11/30/2024 9:16 AM MOTION PICTURE NARRATOR Inhaled Oxygen Concentration - - Weight 92.1 kg (203 lb) 11/30/2024 9:16 AM MOTION PICTURE NARRATOR Height 175.3 cm (5' 9 ) 11/30/2024 9:16 AM MOTION PICTURE NARRATOR Body Mass Index 29.98 11/30/2024 9:16 AM MOTION PICTURE NARRATOR Plan of Treatment Not on file Procedures Procedure Name Priority Date/Time Associated Diagnosis Comments XR FINGER THUMB LEFT Schedule Routine, Read Routine (OP Routine) 11/30/2024 10:55 AM MOTION PICTURE NARRATOR Arthralgia of both hands Long-term use of hydroxychloroquine EGFR Routine 11/30/2024 9:59 AM MOTION PICTURE NARRATOR Skin rash Long-term use of hydroxychloroquine DIFFERENTIAL AUTO Routine 11/30/2024 9:59 AM MOTION PICTURE NARRATOR Skin rash Long-term use of hydroxychloroquine CBC WITH AUTO DIFFERENTIAL Routine 11/30/2024 9:59 AM MOTION PICTURE NARRATOR Skin rash Long-term use of hydroxychloroquine COMPREHENSIVE METABOLIC PANEL Routine 11/30/2024 9:59 AM MOTION PICTURE NARRATOR Skin rash Long-term use of hydroxychloroquine ERYTHROCYTE SEDIMENTATION RATE Routine 11/30/2024 9:59 AM MOTION PICTURE NARRATOR Arthralgia of both hands CRP, HIGH SENSITIVITY Routine 11/30/2024 9:59 AM MOTION PICTURE NARRATOR Arthralgia of both hands COLONOSCOPY 11/14/2013 12:00 AM MOTION PICTURE NARRATOR from Last 3 Months or Most Recently Relevant to Health Maintenance Results * XR Finger Thumb Left Minimum 2 Views (11/30/2024 10:55 AM MOTION PICTURE NARRATOR) Anatomical Region Laterality Modality Upper Extremities, Hand, Fingers Left Computed Radiography 11/30/2024 11:1 4 AM MOTION PICTURE NARRATOR Impressions 11/30/2024 11:14 AM MOTION PICTURE NARRATOR There is joint narrowing at multiple articulations, [...] Emile Ruelas M.D. Narrative 11/30/2024 11:14 AM MOTION PICTURE NARRATOR XR FINGER THUMB LEFT MINIMUM 2 VIEWS: [...] signed by: Emile Ruelas M.D. Lorenza Pickard SUPERVISOR [employer] IMG XR PROCEDURES Final Resul t * eGFR (11/30/2024 9:59 AM MOTION PICTURE NARRATOR) eGFR >90 >=60 mL/min/1. 73 m2 Comment: [...] last reviewed 2021. Blood 11/30/2024 9:59 AM MOTION PICTURE NARRATOR 11/30/2024 1:08 PM MOTION PICTURE NARRATOR Lorenza Pickard [employer]PERVIS[employer] LAB BLOOD ORDERABLES Final Re sult [facility] [address] Department [place] [address] * Differential, auto (11/30/2024 9:59 AM MOTION PICTURE NARRATOR) Neutrophil abs 3.3 1.5 - 6.5 K/cumm Imm gran abs 0.0 0.0 - 0.1 K/cumm [facility] Lymphocyte abs 1.4 0.8 - 3.3 K/cumm [facility] Monocyte abs 0.4 0.2 - 0.8 K/cumm [facility] Eosinophil abs 0.1 0.0 - 0.5 K/cumm [facility] Basophil abs 0.1 0.0 - 0.1 K/cumm [facility] Neutrophil pct 62.3 % [facility] Comment: Interpretive Data Percent cell count reference ranges are not reported, since discordance with absolute values may lead to misinterpretation of CBC data. Current Interpretive Data was last revised on 2018. Imm gran pct 0.4 % [facility] Comment: Interpretive Data Percent cell count reference ranges are not reported, since discordance with absolute values may lead to misinterpretation of CBC data. Current Interpretive Data was last revised on 2018. Lymphocyte pct 25.9 % [facility] Comment: Interpretive Data Percent cell count reference ranges are not reported, since discordance with absolute values may lead to misinterpretation of CBC data. Current Interpretive Data was last revised on 2018. Monocyte pct 7.9 % [facility] Comment: Interpretive Data Percent cell count reference ranges are not reported, since discordance with absolute values may lead to misinterpretation of CBC data. Current Interpretive Data was last revised on 2018. Eosinophil pct 2.6 % [facility] Comment: Interpretive Data Percent cell count reference ranges are not reported, since discordance with absolute values may lead to misinterpretation of CBC data. Current Interpretive Data was last revised on 2018. Basophil pct 0.9 % [facility] Comment: Interpretive Data Percent cell count reference ranges are not reported, since discordance with absolute values may lead to misinterpretation of CBC data. Current Interpretive Data was last revised on 2018. Blood 11/30/2024 9:59 AM MOTION PICTURE NARRATOR 11/30/2024 12:55 PM MOTION PICTURE NARRATOR Lorenza Pickard [employer]PER[employer] LAB BLOOD ORDERABLES Final Re sult Performing Organization Address [facility]/ZIP Co de Phone Number [facility] [address] [place] [address] * (ABNORMAL) CBC with auto differential (11/30/2024 9:59 AM MOTION PICTURE NARRATOR) WBC 5.3 3.8 - 9.9 K/cumm Hgb 14.4 13.0 - 17.5 g/dL [facility] Hct 45.6 38.9 - 50.3 % [facility] Plt 224 150 - 400 K/cumm [facility] MPV 10.2 9.1 - 12.3 fL [facility] RBC 4.95 4.30 - 5.80 M/cumm [facility] MCV 92.1 81.3 - 96.4 fL [facility] MCH 29.1 27.1 - 33.3 pg [facility] MCHC 31.6(L) 32.3 - 35.7 g/dL [facility] RDW CV 12.9 11.1 - 14.9 % [facility] RDW SD 43.1 35.7 - 48.1 fL [facility] NRBC abs 0.00 0.00 - 0.01 K/cumm [facility] Blood 11/30/2024 9:59 AM MOTION PICTURE NARRATOR 11/30/2024 12:55 PM MOTION PICTURE NARRATOR us Lorenza Pickard SUPER[employer] LAB BLOOD ORDERABLES Final Re sult Performing Organization Address City/[facility]/ZIP Co de Phone Number [facility] [address] Department [employer] [place], [place] [id number] * Erythrocyte sedimentation rate (11/30/2024 9:59 AM MOTION PICTURE NARRATOR) Pathologist [facility] Erythrocyte sedimentation rate 15 1 - 20 mm/hr Blood 11/30/2024 9:59 AM MOTION PICTURE NARRATOR 11/30/2024 12:55 PM MOTION PICTURE NARRATOR Lorenza Pickard SUPERVIS[employer] LAB BLOOD ORDERABLES Final Re sult Performing Organization Address [facility] Co de Phone Number [facility] [address] [facility] [email or web address] [address] * CRP (cardiac risk) (11/30/2024 9:59 AM MOTION PICTURE NARRATOR) Pathologist [facility] hsCRP 4.87 mg/L Comment: Interpretive data Adult [...] revised on 2018. Blood 11/30/2024 9:59 AM MOTION PICTURE NARRATOR 11/30/2024 1:08 PM MOTION PICTURE NARRATOR Lorenza Pickard SUPERVIS[employer] LAB BLOOD ORDERABLES Final Re sult Performing Organization Address [facility] Co de Phone Number [facility] [address] Department [email or web address] [address] * Comprehensive metabolic panel (11/30/2024 9:59 AM MOTION PICTURE NARRATOR) [facility] Sodium 136 135 - 145 mmol/L Potassium, pl 4.5 3.3 - 4.9 mmol/L [facility] Chloride 104 97 - 110 mmol/L [facility] CO2 23 22 - 32 mmol/L [facility] Anion gap 9 2 - 15 mmol/L [facility] BUN 18 6 - 25 mg/dL [facility] Creatinine 0.87 0.80 - 1.30 mg/dL [facility] Glucose 119 70 - 199 mg/dL [facility] Comment: Interpretive Data Fasting [...] 2022. Calcium 9.1 8.5 - 10.3 mg/dL [facility] Bilirubin, total 0.4 0.1 - 1.2 mg/dL [facility] Protein, pl 7.2 6.5 - 8.5 g/dL [facility] Albumin 4.3 3.5 - 5.0 g/dL [facility] Alk phos 64 40 - 130 Units/L [facility] ALT 21 7 - 55 Units/L [facility] AST 28 10 - 50 Units/L [facility] Blood 11/30/2024 9:59 AM MOTION PICTURE NARRATOR 11/30/2024 1:08 PM MOTION PICTURE NARRATOR us Lorenza Pickard NP LAB BLOOD ORDERABLES Final Re sult [facility] [address] Department [place] [address] * COLONOSCOPY (11/14/2013 12:00 AM MOTION PICTURE NARRATOR) Anatomical Region Laterality Modality Other Narrative 11/14/2013 12:00 AM MOTION PICTURE NARRATOR Ordered by an unspecified provider. Procedure Note Provider, MD Jewell - 11/14/2013 12:00 AM CST PROCEDURE REPORT Patient: NAZ BRADLEY Account: [id number] Room No: : 1960 Patient Type: SDS [...] Most Recently Relevant to Health Maintenance Insurance [facility] [place] Care Teams Tire Beader Maker Relationship Specialty Start Date End Date Nhung Mixon MD PCP - General Family Medicine 07/18/21 Radha Velásquez PA Physician Industrial [employer] Hel[employer] Orthopedic Surgery 10/21/21 Bhupendra Wiley NP [address] [place] [address] [place] [address] Nurse Practitioner Nurse Practitioner 11/11/22
--- OUTSIDE RECORDS SUMMARY | 2025-02-01 09:15 | XMS_ITS | Clinical Summary ---
Author Organization [facility] Address [address] [place] [address] Care Team Providers Care Synthetic Department Supervisor Name Role Phone Nhung Mixon MD Primary Care Provider [phone] Radha Velásquez PA Unavailable [phone] Bhupendra Wiley NP Unavailable [phone] Allergies Active Allergy Reactions Criticality Noted Date [...] 04/27/2024 Assessment & Plan (11/30/2024 9:57 AM CABLE MACHINE OPERATOR): Degenerative and past inflammatory changes. Past elevation [...] 04/27/2024 Assessment & Plan (11/30/2024 9:58 AM CABLE MACHINE OPERATOR): Hydroxychloroquine (Plaquenil) is a disease-modifying anti-rheumatic drug [...] all the medications you are taking, including paaq-[id number] drugs and natural remedies. Be sure to [...] Bhupendra Foreman MD, and reviewed by the [employer] Committee on Communications and [...] (10/22/2022): Added automatically from request for surgery [id number] Biceps tendonitis on left 10/22/2022 Overview (10/22/2022): Added automatically from request for surgery [id number] Incomplete tear of left rotator cuff 10/22/2022 Overview (10/22/2022): Added automatically from request for surgery [id number] Disorder of shoulder 03/05/2022 Shoulder joint pain 03/05/2022 Synovitis and tenosynovitis 03/05/2022 Complex tear of medial meniscus of right knee Overview (10/18/2021): Added automatically from request for surgery [id number] Complex tear of lateral meniscus of right knee 0 10/18/2021 Overview (10/18/2021): Added automatically from request for surgery [id number] Chronic cough 09/03/2020 Chronic pansinusitis 09/03/2020 AVI (acute kidney injury) 01/05/2019 Reflux gastritis 09/14/2018 Deviated nasal septum 09/14/2018 Encounters Date Type Department Care Team Description 11/30/2024 11:10 AM CABLE MACHINE OPERATOR - 11/30/2024 11:59 PM CABLE MACHINE OPERATOR Hospital Encounter [address] [phone] Discharge Disposition: Discharge to home or self care 11/30/2024 10:34 AM CABLE MACHINE OPERATOR - 11/30/2024 11:59 PM CABLE MACHINE OPERATOR Hospital Encounter [facility] [address] [place] [phone] Arthralgia of both hands; Long-term use of hydroxychloroquine Discharge Disposition: Discharge to home or self care 11/30/2024 9:30 AM CABLE MACHINE OPERATOR Office Visit [facility] Rhe[facility]ology at [address] [place] [phone] Lorenza Pickard, BULL Arthralgia of both hands (Primary Dx); Skin rash; Long-term use of hydroxychloroquine 11/30/2024 Results Follow-Up [facility] Rhe[facility]ology at [address] [place] [phone] Lorenza Pickard NP from Last 3 Months [...] on file Legal Sex Male 11:38 AM CABLE MACHINE OPERATOR Gender Identity Not on file Sexual Orientation Not on file Obstetrics History Last Filed Vital Signs Vital Sign Reading Time Taken Comments Blood Pressure 130/72 11/30/2024 9:16 AM CABLE MACHINE OPERATOR Pulse 68 11/30/2024 9:16 AM CABLE MACHINE OPERATOR Temperature 36.6 C (97.9 F) 11/30/2024 9:16 AM CABLE MACHINE OPERATOR Respiratory Rate 20 11/30/2024 9:16 AM CABLE MACHINE OPERATOR Oxygen Saturation 96% 11/30/2024 9:16 AM CABLE MACHINE OPERATOR Inhaled Oxygen Concentration - - Weight 92.1 kg (203 lb) 11/30/2024 9:16 AM CABLE MACHINE OPERATOR Height 175.3 cm (5' 9 ) 11/30/2024 9:16 AM CABLE MACHINE OPERATOR Body Mass Index 29.98 11/30/2024 9:16 AM CABLE MACHINE OPERATOR Plan of Treatment Health Maintenance Due Date [...] Read Routine (OP Routine) 11/30/2024 10:55 AM CABLE MACHINE OPERATOR Arthralgia of both hands Long-term use of hydroxychloroquine EGFR Routine 11/30/2024 9:59 AM CABLE MACHINE OPERATOR Skin rash Long-term use of hydroxychloroquine DIFFERENTIAL AUTO Routine 11/30/2024 9:59 AM CABLE MACHINE OPERATOR Skin rash Long-term use of hydroxychloroquine CBC WITH AUTO DIFFERENTIAL Routine 11/30/2024 9:59 AM CABLE MACHINE OPERATOR Skin rash Long-term use of hydroxychloroquine COMPREHENSIVE METABOLIC PANEL Routine 11/30/2024 9:59 AM CABLE MACHINE OPERATOR Skin rash Long-term use of hydroxychloroquine ERYTHROCYTE SEDIMENTATION RATE Routine 11/30/2024 9:59 AM CABLE MACHINE OPERATOR Arthralgia of both hands CRP, HIGH SENSITIVITY Routine 11/30/2024 9:59 AM CABLE MACHINE OPERATOR Arthralgia of both hands COLONOSCOPY 11/14/2013 12:00 AM CABLE MACHINE OPERATOR from Last 3 Months or Most Recently Relevant to Health Maintenance Results * XR Finger Thumb Left Minimum 2 Views (11/30/2024 10:55 AM CABLE MACHINE OPERATOR) Anatomical Region Laterality Modality Upper Extremities, Hand, Fingers Left Computed Radiography 11/30/2024 11:1 4 AM CABLE MACHINE OPERATOR Impressions 11/30/2024 11:14 AM CABLE MACHINE OPERATOR There is joint narrowing at multiple articulations, [...] Emile Ruelas M.D. Narrative 11/30/2024 11:14 AM CABLE MACHINE OPERATOR XR FINGER THUMB LEFT MINIMUM 2 VIEWS: [...] signed by: Emile Ruelas M.D. Lorenza Pickard VASCULAR MANAGER IMG XR PROCEDURES Final Resul t * eGFR (11/30/2024 9:59 AM CABLE MACHINE OPERATOR) eGFR >90 >=60 mL/min/1. 73 m2 Comment: [...] last reviewed 2021. Blood 11/30/2024 9:59 AM CABLE MACHINE OPERATOR 11/30/2024 1:08 PM CABLE MACHINE OPERATOR Lorenza Pickard NP LAB BLOOD ORDERABLES Final Re sult [facility] [address] Department of Laboratories [place], [place] [id number] * Differential, auto (11/30/2024 9:59 AM CABLE MACHINE OPERATOR) Neutrophil abs 3.3 1.5 - 6.5 K/cumm Imm gran abs 0.0 0.0 - 0.1 K/cumm [facility] Lymphocyte abs 1.4 0.8 - 3.3 K/cumm [facility] Monocyte abs 0.4 0.2 - 0.8 K/cumm [facility] Eosinophil abs 0.1 0.0 - 0.5 K/cumm [facility] Basophil abs 0.1 0.0 - 0.1 K/cumm [facility] Neutrophil pct 62.3 % [facility] Comment: Interpretive Data Percent cell count reference ranges are not reported, since discordance with absolute values may lead to misinterpretation of CBC data. Current Interpretive Data was last revised on 2018. Imm gran pct 0.4 % [facility] Comment: Interpretive Data Percent cell count reference ranges are not reported, since discordance with absolute values may lead to misinterpretation of CBC data. Current Interpretive Data was last revised on 2018. Lymphocyte pct 25.9 % [facility] Comment: Interpretive Data Percent cell count reference ranges are not reported, since discordance with absolute values may lead to misinterpretation of CBC data. Current Interpretive Data was last revised on 2018. Monocyte pct 7.9 % [facility] Comment: Interpretive Data Percent cell count reference ranges are not reported, since discordance with absolute values may lead to misinterpretation of CBC data. Current Interpretive Data was last revised on 2018. Eosinophil pct 2.6 % [facility] Comment: Interpretive Data Percent cell count reference ranges are not reported, since discordance with absolute values may lead to misinterpretation of CBC data. Current Interpretive Data was last revised on 2018. Basophil pct 0.9 % [facility] Comment: Interpretive Data Percent cell count reference ranges are not reported, since discordance with absolute values may lead to misinterpretation of CBC data. Current Interpretive Data was last revised on 2018. Blood 11/30/2024 9:59 AM CABLE MACHINE OPERATOR 11/30/2024 12:55 PM CABLE MACHINE OPERATOR us Lorenza Pickard NP LAB BLOOD ORDERABLES Final Re sult [facility] [address] Department [place] [address] * (ABNORMAL) CBC with auto differential (11/30/2024 9:59 AM CABLE MACHINE OPERATOR) WBC 5.3 3.8 - 9.9 K/cumm Hgb 14.4 13.0 - 17.5 g/dL [facility] Hct 45.6 38.9 - 50.3 % [facility] Plt 224 150 - 400 K/cumm [facility] MPV 10.2 9.1 - 12.3 fL [facility] RBC 4.95 4.30 - 5.80 M/cumm [facility] MCV 92.1 81.3 - 96.4 fL [facility] MCH 29.1 27.1 - 33.3 pg [facility] MCHC 31.6(L) 32.3 - 35.7 g/dL [facility] RDW CV 12.9 11.1 - 14.9 % [facility] RDW SD 43.1 35.7 - 48.1 fL [facility] NRBC abs 0.00 0.00 - 0.01 K/cumm [facility] Blood 11/30/2024 9:59 AM CABLE MACHINE OPERATOR 11/30/2024 12:55 PM CABLE MACHINE OPERATOR Lorenza Pickard VASCULAR MANAGER LAB BLOOD ORDERABLES Final Re sult Performing Organization Address [facility] Co de Phone Number [facility] [address] [employer] [place], [place] [phone] * Erythrocyte sedimentation rate (11/30/2024 9:59 AM CABLE MACHINE OPERATOR) [facility] Erythrocyte sedimentation rate 15 1 - 20 mm/hr Blood 11/30/2024 9:59 AM CABLE MACHINE OPERATOR 11/30/2024 12:55 PM CABLE MACHINE OPERATOR Lorenza Pickard VASCULAR MANAGER LAB BLOOD ORDERABLES Final Re sult Performing Organization Address City/[facility] Co de Phone Number [facility] [address] [facility] [place] [address] * CRP (cardiac risk) (11/30/2024 9:59 AM CABLE MACHINE OPERATOR) [facility] hsCRP 4.87 mg/L Comment: Interpretive data Adult [...] revised on 2018. Blood 11/30/2024 9:59 AM CABLE MACHINE OPERATOR 11/30/2024 1:08 PM CABLE MACHINE OPERATOR us Lorenza Pickard NP LAB BLOOD ORDERABLES Final Re sult [facility] [address] Department [place] [address] * Comprehensive metabolic panel (11/30/2024 9:59 AM CABLE MACHINE OPERATOR) Sodium 136 135 - 145 mmol/L Potassium, pl 4.5 3.3 - 4.9 mmol/L [facility] Chloride 104 97 - 110 mmol/L [facility] CO2 23 22 - 32 mmol/L [facility] Anion gap 9 2 - 15 mmol/L [facility] BUN 18 6 - 25 mg/dL [facility] Creatinine 0.87 0.80 - 1.30 mg/dL [facility] Glucose 119 70 - 199 mg/dL [facility] Comment: Interpretive Data Fasting glucose >/= 126 [...] 2022. Calcium 9.1 8.5 - 10.3 mg/dL [facility] Bilirubin, total 0.4 0.1 - 1.2 mg/dL [facility] Protein, pl 7.2 6.5 - 8.5 g/dL [facility] Albumin 4.3 3.5 - 5.0 g/dL [facility] Alk phos 64 40 - 130 Units/L [facility] ALT 21 7 - 55 Units/L [facility] AST 28 10 - 50 Units/L [facility] Blood 11/30/2024 9:59 AM CABLE MACHINE OPERATOR 11/30/2024 1:08 PM CABLE MACHINE OPERATOR us Lorenza Pickard VASCULAR MANAGER LAB BLOOD ORDERABLES Final Re sult [facility] [address] Department [place] [address] * COLONOSCOPY (11/14/2013 12:00 AM CABLE MACHINE OPERATOR) Anatomical Region Laterality Modality Other Narrative 11/14/2013 12:00 AM CABLE MACHINE OPERATOR Ordered by an unspecified provider. Procedure Note Provider, MD Jewell - 11/14/2013 12:00 AM CST PROCEDURE REPORT Patient: NAZ BRADLEY Account: [id number] Room No: : 1960 Patient Type: [facility] Attend.: Larry Granados M.D. Admit Date: 11/14/2013 [...] Most Recently Relevant to Health Maintenance Insurance [employer] Care Teams Synthetic Department Supervisor Relationship Specialty Start Date End Date Nhung Mixon MD PCP - General Family Medicine 07/18/21 Radha Velásquez PA Physician [facility] Orthopedic Surgery 10/21/21 Bhupendra Wiley NP [address] [facility] [address] [place] [id number] Nurse Practitioner Nurse Practitioner 11/11/22
[2025-02-01 09:17] LABS: Hematocrit 45.9 % (40.0-54.0); Hemoglobin 14.6 g/dL (14.0-18.0); Mean Corpuscular HGB Conc 31.8 g/dL (32-36); Mean Corpuscular Hemoglobin 29.3 pg (27.0-31.0); Mean Corpuscular Volume 92.2 fL (78.0-102.0); Mean Platelet Volume 8.9 fl (8.7-11.0); Platelet Count Result 139 K/mm3 (150-420); Red Blood Count 4.98 M/mm3 (4.70-6.10); Red Cell Distribution Width 12.8 % (11.6-14.4); White Blood Count 2.5 K/mm3 (4.8-10.8)
[2025-02-01 09:33] LABS: Alanine Aminotransferase 45 U/L (16-63); Albumin Level 3.5 g/dL (3.4-5.0); Alkaline Phosphatase 60 U/L (46-116); Anion Gap 7 mmol/L (4-12); Aspartate Amino Transferase 36 U/L (15-37); Bilirubin,Total 0.4 mg/dL (0.00-1.00); Blood Urea Nitrogen 12 mg/dL (7-18); Calcium 8.9 mg/dL (8.5-10.1); Carbon Dioxide 28 mmol/L (21-32); Chloride 101 mmol/L (98-108); Creatine Kinase 208 U/L (39-308); Estimated CRCL calculation 69 ml/min; Estimated Glomerular Filt Rate > 60; Glucose 100 mg/dL (70-99); Lipase 53 U/L (16-77); Osmolality Calculated 281 mOsm/kg (285-295); Potassium 3.9 mmol/L (3.5-5.1); Sodium 136 mmol/L (136-145); Uric Acid 5.1 mg/dL (3.5-7.2)
[2025-02-01 09:47] LABS: Band Neutrophils Percent 1 % (0-6); Total Cells Counted 100
[2025-02-01 09:48] LABS: Lymphocytes Percent Manual 24 % (18-44); Monocytes Percent Manual 4 % (3-9); Neutrophils Percent Manual 71 % (46-73); Nucleated Red Blood Cells 1 %
[2025-02-01 09:49] LABS: Anisocytosis 2+; Hypochromasia 1+; Platelet Estimate Adequate (Adequate); Schistocytes None Seen
[2025-02-01 09:52] LABS: Influenza A QL RT-PCR Negative (Negative); Influenza B QL RT-PCR Negative (Negative); RSV RNA, RT-PCR Negative (Negative); SARS-CoV-2 RNA PCR Negative (Negative)
[2025-02-01 09:59] LABS: Add Urine Microscopic? NO; Appearance Urine Clear (Clear); Bilirubin Urine Negative (Negative); Blood Urine Negative (Negative); Color Urine Light Yellow (Yellow); Glucose Urine UA Negative (Negative); Ketones Urine Negative (Negative); Leukocyte Esterase Ur Negative LEU/UL (Negative); Nitrate Urine Negative (Negative); Protein Urine Negative (Negative); Specific Grav Ur <= 1.005 (1.010-1.020); Urobilinogen Urine 0.2 mg/dL (0.2-1.0)
[2025-02-01 10:32] VITALS: BP 169/90; PULSE 80; RESP 18; O2SAT 99
== END 2025-02-01 10:32 | disposition home or self-care (01) ==
PROVIDERS: Emergency Provider Internal Medicine Critical Care Medicine; PCP Family Medicine
DX: D70.9 Neutropenia, unspecified (principal); R50.81 Fever presenting with conditions classified elsewhere; M54.9 Dorsalgia, unspecified; Z87.891 Personal history of nicotine dependence; Z20.822 Contact with and (suspected) exposure to COVID-19
CPT/HCPCS: 36415; 71045; 80053; 81003; 82550; 83605; 83690; 84550; 85025; 87637; 99283

== ENCOUNTER 2025-05-13 09:52 | Emergency (ER) | payer BC, SELFPAY ==
--- OUTSIDE RECORDS SUMMARY | 2025-05-13 09:55 | XMS_ITS | Continuity of Care Document ---
Author Organization [facility] Address [address] [place] [address] [address] [place] [address] Phone Care Team Providers Care Atm Servicer Name Role Phone Emile Bridges PT Unavailable Unavailable Procedures Procedure Date Progress Note Neuromuscular Re-Ed Therapeutic Exercise Therapeutic Activities Therapeutic Activities Neuromuscular Re-Ed Therapeutic Exercise Therapeutic Activities Therapeutic Exercise Neuromuscular Re-Ed Therapeutic Activities Neuromuscular Re-Ed Therapeutic Exercise Therapeutic Activities Neuromuscular Re-Ed Therapeutic Exercise Therapeutic Activities Therapeutic Exercise Neuromuscular Re-Ed Neuromuscular Re-Ed Therapeutic Activities Therapeutic Exercise Therapeutic Activities Neuromuscular Re-Ed Therapeutic Exercise Therapeutic Activities Therapeutic Exercise Neuromuscular Re-Ed Therapeutic Activities Progress Note Neuromuscular Re-Ed Therapeutic Exercise Therapeutic Activities Therapeutic Exercise Neuromuscular Re-Ed Therapeutic Activities Neuromuscular Re-Ed Manual Therapy Therapeutic Exercise Therapeutic Activities Neuromuscular Re-Ed Therapeutic Exercise Therapeutic Activities Neuromuscular Re-Ed Therapeutic Exercise Manual Therapy Therapeutic Activities Therapeutic Exercise Manual Therapy Neuromuscular Re-Ed Neuromuscular Re-Ed Therapeutic Activities Therapeutic Exercise Manual Therapy Neuromuscular Re-Ed Therapeutic Activities Progress Note Manual Therapy Therapeutic Exercise Manual Therapy Neuromuscular Re-Ed Therapeutic Activities Therapeutic Exercise PT Evaluation Moderate Complexity Therapeutic Exercise Manual Therapy Therapeutic Activities Neuromuscular Re-Ed Therapeutic Activities Manual Therapy Neuromuscular Re-Ed Therapeutic Exercise PT Evaluation Moderate Complexity Therapeutic Activities Neuromuscular Re-Ed Therapeutic Exercise Manual Therapy Therapeutic Activities Neuromuscular Re-Ed Therapeutic Exercise Neuromuscular Re-Ed Therapeutic Activities Therapeutic Exercise Therapeutic Activities Neuromuscular Re-Ed Therapeutic Exercise Therapeutic Activities Neuromuscular Re-Ed Therapeutic Exercise Therapeutic Activities Therapeutic Exercise Neuromuscular Re-Ed Manual Therapy Therapeutic Activities Therapeutic Exercise Neuromuscular Re-Ed Manual Therapy Therapeutic Activities Neuromuscular Re-Ed Therapeutic Exercise Manual Therapy Therapeutic Activities Manual Therapy Neuromuscular Re-Ed Therapeutic Exercise Therapeutic Activities Neuromuscular Re-Ed Therapeutic Exercise Manual Therapy PT Evaluation Moderate Complexity Manual Therapy Therapeutic Exercise Neuromuscular Re-Ed Advance Directives Directive Yes / No Effective Date File Name No Information Encounters Encounter Description Practice Location Reason(s) For Visit Diagnoses Date Provider Providers Copied on Encounter [facility], [id number], tel:[phone] [place] No Information Cyrus Baptiste. . Referring Provider: Cooper Jerez, [address] [place] [address] [address] [facility], [place], [address]. tel:[phone] [place] [address] [address], [place], [id number], tel:[phone] [place] No Information Cyrus Baptiste. . Referring Provider: Radha Velásquez, [address] [place] [address] [address], [place], [address]. tel:[phone] [facility] [address], [place], [id number], tel:[phone] [place] No Information Cyrus Baptiste. . Referring Provider: Radha Velásquez, [address] [place] [address] [address], [place], [address]. tel:[phone] [facility], [place], [place], [id number], [place] tel:[phone] [place] No Information Dellamano Emile. . Referring Provider: Radha Velásquez, [address] [facility] [address], [place], [address]. tel:[phone] [place] [address] [address], [place], [place], [id number], [place] tel:[phone] [place] No Information Dellamano Emile. . Referring Provider: Cooper Jerez, 4 [facility] [address], [place], [address]. tel:[phone] [place] [address] [address], [place], [place], [id number], [place] tel:[phone] [place] No Information Dellamano Emile. . Referring Provider: Radha Velásquez, [address] [facility] [address], [place], [address]. tel:[phone] [place], [place] [address] [address], [place], [place], [id number], [place] tel:[phone] [place] No Information Dellamano Emile. . Referring Provider: Radha Velásquez, [address] [facility] [address], [place], [address]. tel:[phone] [place] [address] [address], [place], [place], [id number], [place] tel:[phone] [place] No Information Dellamano Emile. . Referring Provider: Cooper Jerez, [address] [facility] [address], [place], [address]. tel:[phone] [place], [place] [address] [address], [place], [place], [address], [place] tel:[phone] [place] No Information Dellamano Emile. . Referring Provider: Cooper Jerez, [address] [facility] [address], [place], [address]. tel:[phone] [place], [place] [address] [address], [place], [place], [id number], [place] tel:[phone] [place] No Information Dellamano Emile. . Referring Provider: Radha Velásquez, [address] [facility] [address], [place], [address]. tel:[phone] [place] [address] [address], [place], [place], [id number], [place] tel:[phone] [place] No Information Dellamano Emile. . Referring Provider: Cooper Jerez, [address] [place] [address] [address], [place], [address]. tel:[phone] [place], [place] [phone] [address], [place], [place], [address], [place] tel:[phone] [place] No Information Dellamano Emile. . Referring Provider: Radha Velásquez, [address] [facility] [address], [place], [address]. tel:[phone] [place], [place] [address] [address], [place], [place], [address], [place] tel:[phone] [place] No Information Dellamano Emile. . Referring Provider: Cooper Jerez, [address] [facility] [address], [place], [address]. tel:[phone] [place], [place] [address] [address], [place], [place], [address], [place] tel:[phone] [place] No Information Modglin Morales. . Referring Provider: Radha Velásquez, [address] [facility] [address], [place], [address]. tel:[phone] [facility], [place], [place], [address], [place] tel:[phone] [place] No Information Dellamano Emile. . Referring Provider: Cooper Jerez, [address] [facility] [address], [place], [address]. tel:[phone] [place] [address] [address], [place], [place], [address], tel:[phone] [place] No Information Dellamano Emile. . Referring Provider: Radha Velásquez, [address] [facility] [address], [place], [address]. tel:[phone] [place] [address] [address], [place], [place], [id number], [place] tel:[phone] [place] No Information Dellamano Emile. . Referring Provider: Cooper Jerez, 4 [facility] 130 [facility], [place], [address]. tel:[phone] [place] [address] [address], [place], [place], [address], [place] tel:[phone] [place] No Information Dellamano Emile. . Referring Provider: Cooper Jerez, 4 [facility] 130 [facility], [place], [address]. tel:[phone] [place] [address] [address], [place], [place], [id number], tel:[phone] [place] No Information Dellamano Emile. . Referring Provider: Radha Velásquez, [address] [facility] [address], [place], [address]. tel:[phone] [place] [address] [address], [place], [place], [address], [place] tel:[phone] [place] No Information Dellamano Emile. . Referring Provider: Cooper Jerez, [address] [facility] [address], [place], [address]. tel:[phone] [place] [address] [address], [place], [place], [address], [place] tel:[phone] [place] No Information Dellamano Emile. . Referring Provider: Cooper Jerez, [address] [place] [address] [address], [place], [address]. tel:[phone] [place] [address], [address], [place], [place], [address], [place] tel:[phone] [place] No Information Dellamano Emile. . Referring Provider: Marco A Hancock, [address] [place] [address] [address], [place], [address]. tel:[phone] [place] [address] [address], [place], [place], [address], [place] tel:[phone] [place] No Information Jaren Mac. . Referring Provider: Marco A Hancock, [address] [place] [address] [address], [place], [address]. tel:[phone] [place] [address], [address], [place], [place], [address], [place] tel:[phone] [place] No Information Dellamano Emile. . Referring Provider: Marco A Hancock, [address] [place] [address] [address], [place], [address]. tel:[phone] [place] [address] [address], [place], [place], [address], [place] tel:[phone] [place] No Information Dellamano Emile. . Referring Provider: Marco A Hancock, [address] [place] [address] [address], [place], [address]. tel:[phone] [place] [address] [address], [place], [place], [address], [place] tel:[phone] [place] No Information Dellamano Emile. . Referring Provider: Marco A Hancock, [address] [place] [address] [address], [place], [address]. tel:[phone] [facility] [address], [place], [place], [address], tel:[phone] [place] No Information Dellamano Emile. . Referring Provider: Marco A Hancock, [address] [place] [address] [address], [place], [address]. tel:[phone] [facility] [address], [place], [place], [address], tel:[phone] [place] No Information Dellamano Emile. . Referring Provider: Marco A Hancock, [address] [place] [address] [address], [place], [address]. tel:[phone] [facility] [address] [place], [place] [address], [place], [address], tel:[phone] [place] No Information Dellamano Emile. . Referring Provider: Marco A Hancock, [address] [place] [address] [address], [place], [address]. tel:[phone] [facility] [address] [place], [place] [address] [place] [address], [id number], tel:[phone] [place] No Information Dellamano Emile. . Referring Provider: Marco A Hancock [address] [place] [address] [address], [place], [address]. tel:[phone] [facility] [address], [place], [place], [address], [place] tel:[phone] [place] No Information Dellamano Emile. . Referring Provider: Marco A Hancock, [address] [place] [address] [address], [place], [address]. tel:[phone] Family History Family Member Type Diagnosis Age At Onset No Information Payers Payer name Insurance type Covered democrat ID Roman samson(s) [facility] [id number] Social History Type Description Quantity Date Captured Comments Sex Male Smoking Status No Information Chief Complaint And Reason For Visit No Information Reason For Referral Reason For Referral No Information Plan Of Treatment Date Type Action Status Referral Ordered: PCP timeframe: 1 week. (related to Overweight) ordered Referral Ordered: Weight management: Referral to physician timeframe: 1 Month. (related to Overweight) ordered Referral Ordered: PCP timeframe: 1 week. (related to Overweight) ordered Referral Ordered: Weight management: Referral to physician timeframe: 1 Month. (related to Overweight) ordered Referral Ordered: PCP timeframe: 1 week. (related to Overweight) ordered Referral Ordered: Weight management: Referral to physician timeframe: 1 Month. (related to Overweight) ordered History Of Present Illness Encounter Date Complaint History Of Prese nt Illness No Information Functional Status Date Functional Assessmen t No Information Instructions Date Instruction Additional Infor mation No Information Assessments Type Assessment Date No Information Patient Care Teams Name Effective Dates (start - stop) Status Members No Information
--- OUTSIDE RECORDS SUMMARY | 2025-05-13 09:55 | XMS_ITS | Clinical Summary ---
Author Organization [facility] Address [address] [place] [address] Care Team Providers Care Records Management Specialist Name Role Phone Miky Norris MD Primary Care Provider Social History Tobacco Use Types Packs/Day Years [...] age to complete this topic Care Teams Records Management Specialist Relationship Specialty Start Date End Date Miky Norris MD [address] [place] [address] PCP - General 10/13/13
--- OUTSIDE RECORDS SUMMARY | 2025-05-13 09:55 | XMS_ITS | Clinical Summary ---
Author Organization [facility] Address [address] [place] [address] Care Team Providers Care Assistant Superintendent Name Role Phone Nhung Mixon MD Primary Care Provider [phone] Radha Velásquez PA Unavailable [phone] Bhupendra Wiley NP Unavailable [phone] Allergies Active Allergy Reactions Criticality Noted Date [...] 04/27/2024 Assessment & Plan (11/30/2024 9:57 AM SCRAP IRON CUTTER): Degenerative and past inflammatory changes. Past elevation [...] 04/27/2024 Assessment & Plan (11/30/2024 9:58 AM SCRAP IRON CUTTER): Hydroxychloroquine (Plaquenil) is a disease-modifying anti-rheumatic drug [...] all the medications you are taking, including afxg-nts-fqmexdj drugs and natural remedies. Be sure to [...] Bhupendra Foreman MD, and reviewed by the [employer] Committee on Communications and [...] (10/22/2022): Added automatically from request for surgery [id number] Biceps tendonitis on left 10/22/2022 Overview (10/22/2022): Added automatically from request for surgery [id number] Incomplete tear of left rotator cuff 10/22/2022 Overview (10/22/2022): Added automatically from request for surgery [id number] Disorder of shoulder 03/05/2022 Shoulder joint pain 03/05/2022 Synovitis and tenosynovitis 03/05/2022 Complex tear of medial meniscus of right knee Overview (10/18/2021): Added automatically from request for surgery [id number] Complex tear of lateral meniscus of right knee 0 10/18/2021 Overview (10/18/2021): Added automatically from request for surgery [id number] Chronic cough 09/03/2020 Chronic pansinusitis 09/03/2020 AVI [...] on file Legal Sex Male 11:38 AM SCRAP IRON CUTTER Gender Identity Not on file Sexual Orientation Not on file Obstetrics History Last Filed Vital Signs Vital Sign Reading Time Taken Comments Blood Pressure 130/72 11/30/2024 9:16 AM SCRAP IRON CUTTER Pulse 68 11/30/2024 9:16 AM SCRAP IRON CUTTER Temperature 36.6 C (97.9 F) 11/30/2024 9:16 AM SCRAP IRON CUTTER Respiratory Rate 20 11/30/2024 9:16 AM SCRAP IRON CUTTER Oxygen Saturation 96% 11/30/2024 9:16 AM SCRAP IRON CUTTER Inhaled Oxygen Concentration - - Weight 92.1 kg (203 lb) 11/30/2024 9:16 AM SCRAP IRON CUTTER Height 175.3 cm (5' 9) 11/30/2024 9:16 AM SCRAP IRON CUTTER Body Mass Index 29.98 11/30/2024 9:16 AM SCRAP IRON CUTTER Plan of Treatment Health Maintenance Due Date [...] Colon Cancer Screening-Colonoscopy 11/14/2023 11/14/2013 Influenza Vaccine (#1) 2025 11/27/2018 Colon Cancer Screening-CT Colonography Discontinued 11/14/2013 Colon Cancer Screening-DNA Stool Discontinued 11/14/19 14 Colon Cancer Screening-FIT Discontinued 11/14/2013 Colon Cancer Screening-Sigmoidoscopy Discontinued 11/14/2013 Procedures Procedure Name Priority Date/Time Associated Diagnosis Comments COLONOSCOPY 11/14/2013 12:00 AM SCRAP IRON CUTTER from Last 3 Months or Most Recently Relevant to Health Maintenance Results * COLONOSCOPY (11/14/2013 12:00 AM SCRAP IRON CUTTER) Anatomical Region Laterality Modality Other Narrative 11/14/2013 12:00 AM SCRAP IRON CUTTER Ordered by an unspecified provider. Procedure Note Provider, MD Jewell - 11/14/2013 12:00 AM CST PROCEDURE REPORT Patient: NAZ BRADLEY Account: [id number] Room No: : 1960 Patient Type: [facility] Attend.: Larry Granados M.D. Admit Date: [...] Most Recently Relevant to Health Maintenance Insurance [employer] [place] Care Teams Assistant Superintendent Relationship Specialty Start Date End Date Nhung Mixon MD PCP - General Family Medicine 07/18/21 Radha Velásquez PA Physician Grab Driver Orthopedic Surgery 10/21/21 Bhupendra Wiley NP [address] [place] [address] Nurse Practitioner Nurse Practitioner 11/11/22
--- OUTSIDE RECORDS SUMMARY | 2025-05-13 09:55 | XMS_ITS | Continuity of Care Document ---
Author Organization [facility] Address [id number] [place] [address] [address] [place] [address] Phone Care Team Providers Care Continuous Improvement Facilitator Name Role Phone Shana Elizabeth Unavailable Unavailable Advance Directives Directive Yes / No Effective Date File Name No Information Encounters Encounter Description Practice Location Reason(s) For Visit Diagnoses Date Provider Providers Copied on Encounter [facility], [address], [place], [place], [id number], [place] tel:[phone] [facility] No Information Dec-0 7-200 0 Clara Saldana. [address], [place], [address], [place]. tel:[phone] Family History Family Member Type Diagnosis Age At Onset No Information Payers Payer name Insurance type Covered constitution party ID Authoriza tion(s) No Information Social History Type Description Quantity Date Captured Comments Sex Male Smoking Status No Information Chief Complaint And Reason For Visit No Information Reason For Referral Reason For Referral No Information History Of Present Illness Encounter Date Complaint History Of Prese nt Illness No Information Functional Status Date Functional Assessmen t No Information Instructions Date Instruction Additional Infor mation No Information Assessments Type Assessment Date No Information Patient Care Teams Name Effective Dates (start - stop) Status Members No Information
--- OUTSIDE RECORDS SUMMARY | 2025-05-13 09:57 | XMS_ITS | Continuity of Care Document ---
Author Organization [facility] Address [address] [place] [address] [address] [place] [address] Phone Care Team Providers Care Psychiatric Clinician Name Role Phone Shana Elizabeth Unavailable Unavailable Advance Directives Directive Yes / No Effective Date File Name No Information Encounters Encounter Description Practice Location Reason(s) For Visit Diagnoses Date Provider Providers Copied on Encounter [facility], [address], [place], [place], [address], [place] tel:[phone] [facility] No Information Dec-0 7-200 0 Clara Saldana. [address] , [address], [place], [address], [place]. tel:[phone] Family History Family Member Type Diagnosis Age At Onset No Information Payers Payer name Insurance type Covered green party ID Authoriza tion(s) No Information Social [...]
--- OUTSIDE RECORDS SUMMARY | 2025-05-13 09:58 | XMS_ITS | Continuity of Care Document ---
Author Organization [facility] Address [address] [place] [address] [address] [place] [address] Phone Care Team Providers Care Admin Prog Coord Name Role Phone Emile Bridges PT Unavailable Unavailable Procedures Procedure Date Progress Note Therapeutic Activities Neuromuscular Re-Ed Therapeutic Exercise Therapeutic Activities Neuromuscular Re-Ed Therapeutic Exercise Therapeutic Activities Therapeutic Exercise Neuromuscular Re-Ed Therapeutic Activities Neuromuscular Re-Ed Therapeutic Exercise Neuromuscular Re-Ed Therapeutic Activities Therapeutic Exercise Therapeutic Activities Therapeutic Exercise Neuromuscular Re-Ed Therapeutic Activities Neuromuscular Re-Ed Therapeutic Exercise Therapeutic Activities Neuromuscular Re-Ed Therapeutic Exercise Therapeutic Activities Neuromuscular Re-Ed Therapeutic Exercise Therapeutic Activities Progress Note Neuromuscular Re-Ed Therapeutic Exercise Therapeutic Activities Therapeutic Exercise Neuromuscular Re-Ed Therapeutic Activities Neuromuscular Re-Ed Manual Therapy Therapeutic Exercise Therapeutic Exercise Neuromuscular Re-Ed Therapeutic Activities Therapeutic Activities Neuromuscular Re-Ed Therapeutic Exercise Manual Therapy Therapeutic Activities Manual Therapy Therapeutic Exercise Neuromuscular Re-Ed Therapeutic Activities Neuromuscular Re-Ed Therapeutic Exercise Manual Therapy Neuromuscular Re-Ed Therapeutic Activities Progress Note Therapeutic Exercise Manual Therapy Therapeutic Activities Manual Therapy Neuromuscular Re-Ed Therapeutic Exercise PT Evaluation Moderate Complexity Therapeutic Exercise Therapeutic Activities Manual Therapy Neuromuscular Re-Ed Therapeutic Activities Manual Therapy Therapeutic Exercise Neuromuscular Re-Ed PT Evaluation Moderate Complexity Therapeutic Activities Neuromuscular Re-Ed Therapeutic Exercise Manual Therapy Neuromuscular Re-Ed Therapeutic Activities Therapeutic Exercise Neuromuscular Re-Ed Therapeutic Activities Therapeutic Exercise Therapeutic Activities Neuromuscular Re-Ed Therapeutic Exercise Therapeutic Activities Neuromuscular Re-Ed Therapeutic Exercise Therapeutic Activities Therapeutic Exercise Neuromuscular Re-Ed Manual Therapy Therapeutic Activities Therapeutic Exercise Neuromuscular Re-Ed Manual Therapy Therapeutic Activities Neuromuscular Re-Ed Manual Therapy Therapeutic Exercise Therapeutic Activities Manual Therapy Neuromuscular Re-Ed Therapeutic Exercise Therapeutic Activities Neuromuscular Re-Ed Therapeutic Exercise Manual Therapy PT Evaluation Moderate Complexity Manual Therapy Neuromuscular Re-Ed Therapeutic Exercise Advance Directives Directive Yes / No Effective Date File Name No Information Encounters Encounter Description Practice Location Reason(s) For Visit Diagnoses Date Provider Providers Copied on Encounter [facility], [id number], tel:[phone] [place] No Information Cyurs Baptiste. . Referring Provider: Cooper Jerez, [address] [place] [address] [address] [facility] [address], [place], [address]. tel:[phone] [place] [address] [address], [place], [id number], tel:[phone] [place] No Information Cyrus Baptiste. . Referring Provider: Radha Velásquez, [address] [place] [address] [address], [place], [address]. tel:[phone] [facility] [address], [place], [id number], tel:[phone] [place] No Information Cyrus Baptiste. . Referring Provider: Radha Velásquez, [address] [place] [address] [address], [place], [address]. tel:[phone] [facility], [place], [place], [id number], [place] tel:[phone] [place] No Information Dellamano Emile. . Referring Provider: Radha Velásquez, [address] [facility] [address], [place], [address]. tel:[phone] [place] [address] [address], [place], [place], [address], [place] tel:[phone] [place] No Information Dellamano Emile. . Referring Provider: Cooper Jerez, [address] [facility] [address], [place], [address]. tel:[phone] [place] [address] [address], [place], [place], [address], [place] tel:[phone] [place] No Information Dellamano Emile. . Referring Provider: Radha Velásquez, [address] [facility] [address], [place], [address]. tel:[phone] [place], [place] [address], [place], [place], [address], [place] tel:[phone] [place] No Information Dellamano Emile. . Referring Provider: Radha Velásquez, [address] [facility] [address], [place], [address]. tel:[phone] [place] [address] [address], [place], [place], [address], [place] tel:[phone] [place] No Information Dellamano Emile. . Referring Provider: Cooper Jerez, [address] [facility] [address], [place], [address]. tel:[phone] [place] [id number] [address], [place], [place], [address], [place] tel:[phone] [place] No Information Dellamano Emile. . Referring Provider: Cooper Jerez, [address] [facility] [address], [place], [address]. tel:[phone] [place] [id number] [address], [place], [address], [place] tel:[phone] [place] No Information Dellamano Emile. . Referring Provider: Radha Velásquez, [address] [facility] [address], [place], [address]. tel:[phone] [place] [address] [address], [place], [address], [place] tel:[phone] [place] No Information Dellamano Emile. . Referring Provider: Cooper Jerez, [address] [place] [address] [address], [place], [address]. tel:[phone] [place], [place] [address], [place], [address], [place] tel:[phone] [place] No Information Dellamano Emile. . Referring Provider: Radha Velásquez, [address] [facility] [address], [place], [address]. tel:[phone] [place] [address] [address], [place], [place], [address], [place] tel:[phone] [place] No Information Dellamano Emile. . Referring Provider: Cooper Jerez, [address] [facility] [address], [place], [address]. tel:[phone] [place] [id number] [address], [place], [place], [address], [place] tel:[phone] [place] No Information Modglin Morales. . Referring Provider: Radha Velásquez, [address] [facility] [address], [place], [address]. tel:[phone] [facility], [place], [address], [place] tel:[phone] [place] No Information Dellamano Emile. . Referring Provider: Cooper Jerez, [address] [facility] [address], [place], [address]. tel:[phone] [place] [address] [address], [place], [place], [address], tel:[phone] [place] No Information Dellamano Emile. . Referring Provider: aRdha Velásquez, [address] [facility] [address], [place], [address]. tel:[phone] [place] [address] [address], [place], [address], [place] tel:[phone] [place] No Information Dellamano Emile. . Referring Provider: Cooper Jerez, [address] [facility] [address] [facility] [address], [place], [address]. tel:[phone] [place] [address] [address], [place], [address], [place] tel:[phone] [place] No Information Dellamano Emile. . Referring Provider: Cooper Jerez, [address] [facility] [address] [facility] [address], [place], [address]. tel:[phone] [place] [address] [address], [place], [place], [address], tel:[phone] [place] No Information Dellamano Emile. . Referring Provider: Radha Velásquez, [address] [facility] [address], [place], [address]. tel:[phone] [place] [address] [address], [place], [address], [place] tel:[phone] [place] No Information Dellamano Emile. . Referring Provider: Cooper Jerez, [address] [facility] [address], [place], [address]. tel:[phone] [place] [id number] [address], [place], [address], [place] tel:[phone] [place] No Information Dellamano Emile. . Referring Provider: Cooper Jerez, [address] [place] [address] [address], [place], [address]. tel:[phone] [place] [address], [address], [place], [place], [address], [place] tel:[phone] [place] No Information Dellamano Emile. . Referring Provider: Marco A Hancock, [address] [place] [address] [address], [place], [address]. tel:[phone] [place] [address] [address], [place], [place], [address], [place] tel:[phone] [place] No Information Jaren Mac. . Referring Provider: Marco A Hancock, [address] [place] [address] [address], [place], [address]. tel:[phone] [place] [address], [address], [place], [place], [address], [place] tel:[phone] [place] No Information Dellamano Emile. . Referring Provider: Marco A Hancock, [address] [place] [address] [address], [place], [address]. tel:[phone] [place] [address] [address], [place], [address], [place] tel:[phone] [place] No Information Dellamano Emile. . Referring Provider: Marco A Hancock, [address] [place] [address] [address], [place], [address]. tel:[phone] [place] [address] [address], [place], [place], [address], [place] tel:[phone] [place] No Information Dellamano Emile. . Referring Provider: Marco A Hancock, [address] [place] [address] [address], [place], [address]. tel:[phone] [facility] [address], [place], [place], [address], tel:[phone] [place] No Information Dellamano Emile. . Referring Provider: Marco A Hancock, [address] [place] [address] [address], [place], [address]. tel:[phone] [facility] [address], [place], [place], [address], tel:[phone] [place] No Information Dellamano Emile. . Referring Provider: Marco A Hancock, [address] [place] [address] [address], [place], [address]. tel:[phone] [facility] [address] [place], [place] [address], [place], [address], tel:[phone] [place] No Information Dellamano Emile. . Referring Provider: Marco A Hancock, [address] [place] [address] [address], [place], [address]. tel:[phone] [facility] [address] [place], [place] [address] [place] [address], [id number], tel:[phone] [place] No Information Dellamano Emile. . Referring Provider: Marco A Hancock [address] [place] [address] [address], [place], [address]. tel:[phone] [facility] [address], [place], [place], [address], [place] tel:[phone] [place] No Information Dellamano Emile. . Referring Provider: Marco A Hancock, [address] [place] [address] [address], [place], [address]. tel:[phone] Family History Family Member Type Diagnosis Age At Onset No Information Payers Payer name Insurance type Covered green party ID Roman samson(s) Formerly [facility] [id number] Social History Type Description Quantity Date Captured [...]
[2025-05-13 10:05] VITALS: BP 137/90; PULSE 74; RESP 18; TEMP 36.3; O2SAT 98
--- NOTE | 2025-05-13 10:37 | ED.SKABFB ---
HPI - Skin/Abscess/Foreign Bdy General Chief complaint: Skin/Abscess/Foreign Body Stated complaint: c/o shingles rash Time Seen by Provider: 05/13/25 10:20 Source: patient and RN notes reviewed Mode of arrival: ambulatory Limitations: no limitations History of Present Illness HPI narrative: 65-year-old male presents Express Care complaining of rash approximately 3 days. Patient said he noticed a rash started on his back 3 days ago report pain and burning to his back. Since then the rash has spread to front of his ribcage on the left side. Patient also reports a rash to his right arm pit after switching deodorant. Patient denies pain but reports redness and itchiness to his right arm pit. Patient has not tried anything over the counter. Patient denies any chest pain, difficulty breathing, fevers, eye pain, vision problems, hearing changes, tinnitus, or other rashes on his body. Patient reports having history of chicken pox but has never had shingles. Related Data Allergies Allergy/AdvReac Type Severity Reaction Status Date / Time adhesive tape Allergy Mild Rash Verified 05/13/25 10:12 NSAIDS (Non-Steroidal AdvReac Other Verified 02/01/25 08:34 Anti-Inflamma Review of Systems Review of Systems: CONSTITUTIONAL: Denies fever, chills, or sweats. EYES: Denies visual changes, redness, or discharge. ENT: Denies rhinorrhea, congestion, sore throat, or otalgia. CARDIOVASCULAR: Denies chest pain, palpitations, or edema. RESPIRATORY: Denies cough or dyspnea. GASTROINTESTINAL: Denies abdominal pain, nausea, vomiting, or diarrhea. GENITOURINARY: Denies dysuria or hematuria. SKIN: Positive for rash or itching. MUSCULOSKELETAL: Denies back pain, joint pain, or myalgia. NEUROLOGIC: Denies headache, numbness, or weakness. PSYCHIATRIC: Denies anxiety or depression. All other systems reviewed are negative, except as documented in HPI. [facility] Past Medical History Medical History Helicobacter positive gastritis Arthralgia Encounter for immunization Encounter for immunization Vitamin B12 deficiency Arthritis of knee, right Severe low back pain Anemia of unknown etiology MVP (mitral valve prolapse) Hypercholesterolemia Surgical History Surgical History History of surgery on arm [place] teeth extracted History of appendectomy Family History Family History Other Diabetes mellitus Family history of malignant neoplasm of bone Social History Social History Smoking packs per day: 1.5 Smoking cigarettes per day: 30.0 Years smoked: 20 Smoking pack-years: 30.00 Smoking status: Former smoker Tobacco type: cigarettes Second hand tobacco smoke exposure: No Smoking end date: 09/28/07 Alcohol intake: current Drinks per week: 3 Alcohol use details: consumes 1 mixed drinks weekly Substance use: never Substance use type: does not use Lack of Transportation: No Lack of Food: Never True Current Housing: I Have Housing Concerned About Future Housing: No Difficulty Paying Gas/Electric Bills: No Difficulty Paying for Meds: No Currently Unemployed: No Education: High School Diploma/GED Difficulty w/ Childcare or Family Care: No Living arrangements: with family Additional living arrangements comments: with sp Occupation/Education: occupation 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 There is no relevant family history pertinent to the patient complaint. Exam Narrative: GENERAL: This is a well-nourished, well-developed adult, in no apparent distress. They are non ill-appearing, nontoxic appearing. HEAD: normocephalic, atraumatic. EYES: Sclera clear/white. Conjunctiva normal. Vision is grossly intact. Extraocular movements intact EARS: External ears normal, auditory canals clear and without drainage, TMs normal without perforation. Hearing grossly intact. NOSE: External nose normal THROAT: Mucous membranes moist, NECK: Neck supple, CARDIOVASCULAR: Regular rate and rhythm RESPIRATORY: Respiratory rate normal, respiratory effort nonlabored, no respiratory distress SKIN: Diffusely large erythematous macular papular vesicular rash that follows a dermatome starting in the left mid back and extends into the anterior left rib cage. The rash is partially crusted over. Rash is tender to palpate. No exudate or induration. Right axilla: Erythematous pruritic macular papular rash is nontender. No area of fluctuance or induration. No exudate. Satellite lesions present. NEURO: awake, alert, and oriented to person, place and time. There were no obvious focal neurologic abnormalities. EXTREMITIES: No joint tenderness, effusion, or edema noted. BACK: Nontender without deformity. No CVA tenderness. Course Course Emergency Course: Portions of this record may have been created with voice recognition software Level of Care: Express Care Visit Vital Signs Vital signs: Vital Signs Temperature 97.3 F L 05/13/25 10:05 Pulse Rate 74 05/13/25 10:05 Respiratory Rate 18 05/13/25 10:05 Blood Pressure 137/90 05/13/25 10:05 Pulse Oximetry 98 05/13/25 10:05 Oxygen Delivery Room Air 05/13/25 10:05 Temperature 97.3 F L 05/13/25 10:05 Pulse Rate 74 05/13/25 10:05 Respiratory Rate 18 05/13/25 10:05 Blood Pressure 137/90 05/13/25 10:05 Pulse Oximetry 98 05/13/25 10:05 Oxygen Delivery Room Air 05/13/25 10:05 Reviewed MDM - Skin/Abscess/Foreign Bdy MDM Narrative Medical decision making narrative: Patient likely has shingles on the left side of his body. Patient continues to have new lesions erupt after 72 hours. Will prescribe valacyclovir. Patient likely also has a yeast infection to right axilla. Will prescribe clotrimazole cream. Discussed physical exam findings. Advised supportive measures and signs/symptoms to go to the ER. Pt is appropriate for outpt treatment and f/u. Differential Diagnosis Differential diagnosis: Likely dermatophytosis, herpes zoster, cellulitis, eczema and contact dermatitis Critical Care Time Critical Care Time Critical Care Time: No Discharge Plan Discharge Clinical Impression: Yeast infection of the skin Herpes zoster Qualifiers: Herpes zoster complications: without complications Qualified Code(s): B02.9 - Zoster without complications Patient Disposition: Home Condition: Stable Instructions: Shingles (ED) Additional Instructions: Take valacyclovir as directed. Shingles is transmitted by direct contact of your skin lesions. Your no longer contagious once all the lesions have crusted over. Take Tylenol as needed for pain. Follow the instructions on the bottle. Also appears you may have a yeast infection in her armpit. Use clotrimazole twice a day to the affected area for least 1-2 weeks until the rash is disappeared. Keep the area dry. Wash your skin daily with mild soap and water. Avoid scratching or picking at the shingles rash as it may cause a secondary infection. Follow-up with PCP in 3-5 days. If you develop the shingles rash elsewhere on the body, vision problems, headaches, ear pain, hearing problems, fevers, weakness, chest pains, shortness of breath, difficulty breathing, or any serious concerns please go to the ER immediately. Patient Language: Finnish Prescriptions: New valacyclovir 1 gram tablet 1,000 mg PO TID 7 Days Qty: 21 0RF clotrimazole 1 % cream 1 applic topical BID 14 Days Qty: 30 0RF No Action omeprazole 40 mg capsule,delayed release(DR/EC) 40 mg PO DAILY Qty: 30 0RF ferrous sulfate 325 mg (65 mg iron) tablet 325 mg PO DAILY Qty: 100 3RF pravastatin 20 mg tablet 20 mg PO DAILY Qty: 90 1RF amlodipine 5 mg tablet 5 mg PO DAILY Qty: 90 1RF tramadol 50 mg tablet 50 mg PO Q6H PRN (Reason: pain) Qty: 100 0RF Follow-up/Referrals: Nhung Mixon MD [Primary Care Provider] - Time of Disposition: 10:31
== END 2025-05-13 10:45 | disposition home or self-care (01) ==
PROVIDERS: PCP Family Medicine
DX: B37.2 Candidiasis of skin and nail (principal); B02.9 Zoster without complications; Z87.891 Personal history of nicotine dependence; I34.1 Nonrheumatic mitral (valve) prolapse; E78.00 Pure hypercholesterolemia, unspecified; M17.11 Unilateral primary osteoarthritis, right knee; D64.9 Anemia, unspecified
CPT/HCPCS: 99213; G0463

== ENCOUNTER 2025-09-18 10:05 | Outpatient (CLI) | payer BC, SELFPAY ==
[2025-09-18 10:25] LABS: Hematocrit 43.0 % (42.0-52.0); Hemoglobin 14.4 g/dL (14.0-18.0); Immature Granulocyte Percent A 0.3 % (0-0.5); Lymphocytes Absolute Auto 1.62 K/mm3 (0.9-3.2); Mean Corpuscular HGB Conc 33.5 g/dl (32-36); Mean Corpuscular Hemoglobin 30.8 pg (26-34); Mean Corpuscular Volume 92.1 fl (80-100); Nucleated Red Blood Cells Absolute Auto 0.000 K/mm3 (0.0-0.012); Nucleated Red Blood Cells Perc 0.0 % (0.0-0.2); Platelet Count Result 202 k/mm3 (150-375); Red Blood Count 4.67 M/mm3 (4.6-6.20); White Blood Count 7.2 K/mm3 (4.5-10.0)
[2025-09-18 10:46] LABS: Iron 71 ug/dL (49-181)
[2025-09-18 10:47] LABS: Alanine Aminotransferase 26 U/L (6-50); Albumin Level 4.3 g/dL (3.5-5.1); Alkaline Phosphatase 67 U/L (38-126); Anion Gap 7 mmol/L (4-12); Aspartate Amino Transferase 34 U/L (17-59); Bilirubin,Total 0.5 mg/dL (0.2-1.3); Blood Urea Nitrogen 21 mg/dL (9-20); Calcium 9.1 mg/dL (8.4-10.2); Carbon Dioxide 24 mmol/L (22-30); Chloride 106 mmol/L (98-107); Cholesterol 207 mg/dL (0-200); Estimated Glomerular Filt Rate > 60; Glucose 106 mg/dL (65-110); HDL Direct 57 mg/dL; Potassium 4.5 mmol/L (3.4-5.0); Sodium 137 mmol/L (137-145); Total Protein 7.5 g/dL (6.3-8.2); Triglycerides 123 mg/dL (<150)
[2025-09-18 10:56] LABS: Percent Iron Saturation 25 % (20-50)
[2025-09-18 11:22] LABS: Prostate Specific Antigen 0.9 ng/mL (< OR = 4.0)
[2025-09-18 11:27] LABS: Ferritin 123.00 ng/mL (11.1-264)
--- OUTSIDE RECORDS SUMMARY | 2025-09-18 11:29 | XMS_ITS | Clinical Summary ---
Author Organization [facility] Address [address] [place] [address] Care Team Providers Care Obstetrical Anesthesiologist Name Role Phone Miky Norris MD Primary Care Provider [phone] Social History Tobacco Use Types Packs/Day Years [...] Vaccines (1 of 2) 01/15/2012 COVID-19 Vaccine (2024-2 6 season) 2025 Influenza Adult (#1) 2025 RSV Immunization or 60+ Years (1 - 1-dose 75+ series) 2037 Hepatitis A Vaccines Aged Out No long er eligible based on patient's age to complete this topic Meningococcal B Vaccine Aged Out No l onger eligible based on patient's age to complete this topic Meningococcal Vaccine Aged Out No navya hero eligible based on patient's age to complete this topic RSV Immunizations Under 20 Months Aged Out No longer eligible based on patient's age to complete this topic Care Teams Obstetrical Anesthesiologist Relationship Specialty Start Date End Date Miky Norris MD [address] [place] [address] PCP - General 10/13/13
--- OUTSIDE RECORDS SUMMARY | 2025-09-18 11:29 | XMS_ITS | Clinical Summary ---
Author Organization [facility] Address [address] [place] [address] Care Team Providers Care Core Measures Abstractor Name Role Phone Pcp, No Primary Care Provider [phone] Social History Tobacco Use Types Packs/Day Years Used Date Smoking Tobacco: Never Assessed Sex and Gender Information Value Date Recorded Sex Assigned at Not on file Legal Sex Male 1:02 PM EDT Gender Identity Not on file Sexual Orientation Not on file Plan of Treatment Not on file Medical Devices Not on file Care Teams Core Measures Abstractor Relationship Specialty Start Date End Date Rowan Goldman PCP - General Family Medicine 06/23/21
--- OUTSIDE RECORDS SUMMARY | 2025-09-18 11:29 | XMS_ITS | Clinical Summary ---
Author Organization [facility] Address [address] [place] [address] Care Team Providers Care [employer] Name Role Phone Nhung Mixon MD Primary Care Provider [phone] Radha Velásquez PA Unavailable [phone] Bhupendra Wiley NP Unavailable [phone] Allergies Active Allergy Reactions Criticality Noted Date [...] 04/27/2024 Assessment & Plan (11/30/2024 9:57 AM ASSISTANT TO THE CEO): Degenerative and past inflammatory changes. Past elevation [...] 04/27/2024 Assessment & Plan (11/30/2024 9:58 AM ASSISTANT TO THE CEO): Hydroxychloroquine (Plaquenil) is a disease-modifying anti-rheumatic drug [...] all the medications you are taking, including nxoz-sir-hbmobju drugs and natural remedies. Be sure to [...] Bhupendra Foreman MD, and reviewed by the [employer] Committee on Communications and [...] (10/22/2022): Added automatically from request for surgery [id number] Biceps tendonitis on left 10/22/2022 Overview (10/22/2022): Added automatically from request for surgery [id number] Incomplete tear of left rotator cuff 10/22/2022 Overview (10/22/2022): Added automatically from request for surgery [id number] Disorder of shoulder 03/05/2022 Shoulder joint pain 03/05/2022 Synovitis and tenosynovitis 03/05/2022 Complex tear of medial meniscus of right knee Overview (10/18/2021): Added automatically from request for surgery [id number] Complex tear of lateral meniscus of right knee 0 10/18/2021 Overview (10/18/2021): Added automatically from request for surgery [id number] Chronic cough 09/03/2020 Chronic pansinusitis 09/03/2020 AVI [...] on file Legal Sex Male 11:38 AM ASSISTANT TO THE CEO Gender Identity Not on file Sexual Orientation Not on file Last Filed Vital Signs Vital Sign Reading Time Taken Comments Blood Pressure 130/72 11/30/2024 9:16 AM ASSISTANT TO THE CEO Pulse 68 11/30/2024 9:16 AM ASSISTANT TO THE CEO Temperature 36.6 C (97.9 F) 11/30/2024 9:16 AM ASSISTANT TO THE CEO Respiratory Rate 20 11/30/2024 9:16 AM ASSISTANT TO THE CEO Oxygen Saturation 96% 11/30/2024 9:16 AM ASSISTANT TO THE CEO Inhaled Oxygen Concentration - - Weight 92.1 kg (203 lb) 11/30/2024 9:16 AM ASSISTANT TO THE CEO Height 175.3 cm (5' 9) 11/30/2024 9:16 AM ASSISTANT TO THE CEO Body Mass Index 29.98 11/30/2024 9:16 AM ASSISTANT TO THE CEO Plan of Treatment Health Maintenance Due Date [...] Associated Diagnosis Comments COLONOSCOPY 11/14/2013 12:00 AM ASSISTANT TO THE CEO from Last 3 Months or Most Recently Relevant to Health Maintenance Results * COLONOSCOPY (11/14/2013 12:00 AM ASSISTANT TO THE CEO) Anatomical Region Laterality Modality Other Narrative 11/14/2013 12:00 AM ASSISTANT TO THE CEO Ordered by an unspecified provider. Procedure Note Provider, MD Jewell - 11/14/2013 12:00 AM CST PROCEDURE REPORT Patient: NAZ BRADLEY Account: [id number] Room No: : [id number] Patient Type: [facility] Attend.: Larry Granados M.D. Admit Date: 11/14/2013 Dict.: Larry Grnaados M.D. Disch. Date: 11/14/2013 NAME OF PROCEDURE: [...] Most Recently Relevant to Health Maintenance Insurance [facility] [employer] [place] Care Teams [employer] Relationship Specialty Start Date End Date Nhung Mixon MD PCP - General Family Medicine 07/18/21 Radha Velásquez PA Physician Medical Collections Specialist Orthopedic Surgery 10/21/21 Bhupendra Wiley NP [address] [facility] [place] [id number] Nurse Practitioner Nurse Practitioner 11/11/22
[2025-09-18 11:57] LABS: Vitamin B12 323.0 pg/mL (239-931)
[2025-09-20 21:07] LABS: Free Testosterone (Direct) 4.1 pg/mL (6.6-18.1)
== END 2025-09-18 10:06 | disposition home or self-care (01) ==
LOC: ANHLAB 10:06
PROVIDERS: PCP Student in an Organized Health Care Education/Training Program; Visit Provider Student in an Organized Health Care Education/Training Program
DX: D50.9 Iron deficiency anemia, unspecified (principal); E53.8 Deficiency of other specified B group vitamins; E78.5 Hyperlipidemia, unspecified; I10 Essential (primary) hypertension; Z12.5 Encounter for screening for malignant neoplasm of prostate; R53.83 Other fatigue
CPT/HCPCS: 36415; 80053; 80061; 82607; 82728; 82746; 83540; 83550; 84153; 84402; 84403; 85025; G0103